=== PATIENT | female | born 1935 | race Caucasian/White ===

== ENCOUNTER 2018-05-11 10:42 | Observation (INO) ==
[2018-05-11] MEDS ORDERED: Ipratropium/Albuterol Neb 3 ML IH ONE (10:57)
--- NOTE | 2018-05-11 11:03 | Emergency Department Note ---
Disposition Clinical Impression: Chronic obstructive pulmonary disease with (acute) exacerbation, Hypokalemia Disposition: Admitted As Inpatient Condition: Good Referrals: David Ricardo MD [Primary Care Provider] - Forms: ED Satisfaction Letter General Adult HPI - General Chief complaint: ED Shortness of Breath/Dyspnea Stated complaint: dyspnea Time Seen by Provider: 05/11/18 10:49 Source: patient, family Limitations: no limitations Nursing Notes Reviewed: Yes Vital Signs Reviewed: Yes - History of Present Illness Pain Scale: 0 - Related Data Home Medications Medication Instructions Recorded Confirmed Aspirin [Adult Low Dose Aspirin EC] 81 mg PO QAM 04/07/15 04/07/15 Carvedilol 12.5 mg PO BID 04/07/15 04/07/15 Furosemide [Lasix] 40 mg PO QAM 04/07/15 04/07/15 Levothyroxine [Synthroid] 50 mcg PO QAM 04/07/15 04/07/15 Multivitamin/Iron/Folic Acid 1 each PO QAM 04/07/15 04/07/15 [Centrum Complete Multivit Tab] Nitroglycerin [Nitrostat] 0.4 mg SL AD PRN 04/07/15 04/07/15 Oxybutynin Chloride [Ditropan Xl] 5 mg PO QAM 04/07/15 04/07/15 Simvastatin [Zocor] 40 mg PO QPM 04/07/15 04/07/15 Previous Rx's Medication Instructions Recorded amLODIPine [Norvasc] 10 mg PO DAILY #30 tablet 04/10/15 Cane 1 each MC DAILY #1 each 10/25/16 predniSONE [PredniSONE] 40 mg PO DAILY #10 tablet 10/25/16 Benzonatate [Tessalon] 200 mg PO TID PRN #20 capsule 03/23/18 Doxycycline 100 mg PO BID #14 capsule 03/23/18 predniSONE [PredniSONE] 20 mg PO BID #10 tablet 03/23/18 Allergies Allergy/AdvReac Type Severity Reaction Status Date / Time ibuprofen [From Advil] Allergy See Verified 03/23/18 16:23 Comments Penicillins Allergy See Verified 03/23/18 16:23 Comments IVP dye Allergy Anaphylaxis Uncoded 12/14/16 14:15 Past Medical History - Past Medical History Medical history: Reports: COPD, hypertension, renal disease Surgical history: Reports: angioplasty/stent (Cardiac cath in 2012: EF 50-55%, minimal CAD, no stent placed.), cholecystectomy Psychiatric history: Reports: no psych history - Social History Smoking Status: Former smoker Smokeless Tobacco Status: No Alcohol use: Reports: none Drug use: Reports: none Physical Exam - General Limitations: no limitations General appearance: alert, in no apparent distress Course Vital Signs Temperature 97.8 F 05/11/18 10:44 Pulse Rate 76 05/11/18 10:44 Respiratory Rate 20 05/11/18 10:44 Blood Pressure 103/68 05/11/18 10:44 O2 Sat by Pulse Oximetry 95 05/11/18 10:44 Temperature 97.8 F 05/11/18 10:44 Pulse Rate 79 05/11/18 13:13 Respiratory Rate 16 05/11/18 13:13 Blood Pressure 107/57 05/11/18 13:13 O2 Sat by Pulse Oximetry 98 05/11/18 13:13 Oxygen Delivery Oxygen Delivery Room Air Medical Decision Making - MDM Narrative Medical decision making narrative: Chest X-Ray 05/11/18 10:53 IMPRESSION: 1. No acute abnormality. D/ / Tello Joyner MD / Tello Joyner MD Interpreting Provider: Tello Joyner MD 11:30: Patient is hypokalemic so we gave her some oral potassium waiting on urinalysis and then reassess. 1430 hrs.: Patient says that she like to come in with her hypokalemia her potential syncopal episode she had along with her COPD. I think that is reasonable. Were getting a replace her potassium start her on medications and bring her into the hospital. - Lab Data Result diagrams: 05/11/18 11:57 05/11/18 11:57 Lab Results 05/11/18 05/11/18 05/11/18 Range/Units 11:57 11:57 11:57 WBC 14.9 H (4.3-11.1) K/mcL RBC 3.49 L (3.82-4.97) M/mcL Hgb 11.0 L (11.5-15.4) g/dL Hct 33.2 L (35.3-44.9) % MCV 95.1 (83.0-100.0) fL MCH 31.5 (28.0-33.3) pg MCHC 33.1 (31.6-35.5) g/dL RDW 13.8 (11.5-14.5) % Plt Count 153 (140-400) K/mcL MPV 9.1 L (9.4-12.4) fL Immature Gran % 0.6 (0-4) % Seg Neutrophils % 77.1 % Lymphocytes % 12.0 % Monocytes % 10.1 % Eosinophils % 0.1 % Basophils % 0.1 % Neutrophils # 11.5 H (1.6-8.9) K/mcL Lymphocytes # 1.8 (0.6-4.6) K/mcL Monocytes # 1.5 H (0.0-1.3) K/mcL Eosinophils # 0.0 (0.0-0.6) K/mcL Basophils # 0.0 (0.0-0.2) K/mcL Sodium 137 (136-145) mEq/L Potassium 2.8 L (3.5-5.1) mEq/L Chloride 108 H (98-107) mEq/L Carbon Dioxide 24 (23-29) mEq/L BUN 33 H (8-23) mg/dL Creatinine 1.37 H (0.60-1.20) mg/dL Est GFR ( Amer) 45 L (> 60) Est GFR (Non-Af Amer) 37 L (> 60) BUN/Creatinine Ratio 24 (6-26) Glucose 91 (70-105) mg/dL Calculated Osmolality 291 (280-300) Calcium 7.7 L (8.6-10.3) mg/dL Troponin I < 0.03 (< 0.04) ng/mL Urine Color (Yellow) Urine Clarity (Clear) Urine pH (5.0-8.0) pH Units Ur Specific [place] (1.010-1.025) Urine Protein (Neg-Trace) mg/dL Urine Glucose (UA) (Normal) mg/dL Urine Ketones (Negative) mg/dL Urine Blood (Negative) Urine Nitrite (Negative) Urine Bilirubin (Negative) Urine Urobilinogen (Normal) mg/dL Ur Leukocyte Esterase (Negative) Urine Microscopic RBC (0-3) per hpf Urine Microscopic WBC (0-3) per hpf Ur Squamous Epith Cells (None-Few) per lpf Urine Bacteria (None-Few) per hpf Hyaline Casts (None-Few) per lpf Ur Culture Indicated? (NO) 05/11/18 Range/Units 13:03 WBC (4.3-11.1) K/mcL RBC (3.82-4.97) M/mcL Hgb (11.5-15.4) g/dL Hct (35.3-44.9) % MCV (83.0-100.0) fL MCH (28.0-33.3) pg MCHC (31.6-35.5) g/dL RDW (11.5-14.5) % Plt Count (140-400) K/mcL MPV (9.4-12.4) fL Immature Gran % (0-4) % Seg Neutrophils % % Lymphocytes % % Monocytes % % Eosinophils % % Basophils % % Neutrophils # (1.6-8.9) K/mcL Lymphocytes # (0.6-4.6) K/mcL Monocytes # (0.0-1.3) K/mcL Eosinophils # (0.0-0.6) K/mcL Basophils # (0.0-0.2) K/mcL Sodium (136-145) mEq/L Potassium (3.5-5.1) mEq/L Chloride (98-107) mEq/L Carbon Dioxide (23-29) mEq/L BUN (8-23) mg/dL Creatinine (0.60-1.20) mg/dL Est GFR ( Amer) (> 60) Est GFR (Non-Af Amer) (> 60) BUN/Creatinine Ratio (6-26) Glucose (70-105) mg/dL Calculated Osmolality (280-300) Calcium (8.6-10.3) mg/dL Troponin I (< 0.04) ng/mL Urine Color Yellow (Yellow) Urine Clarity Clear (Clear) Urine pH 6.0 (5.0-8.0) pH Units Ur Specific [place] 1.012 (1.010-1.025) Urine Protein Negative (Neg-Trace) mg/dL Urine Glucose (UA) Normal (Normal) mg/dL Urine Ketones Negative (Negative) mg/dL Urine Blood Negative (Negative) Urine Nitrite Negative (Negative) Urine Bilirubin Negative (Negative) Urine Urobilinogen Normal (Normal) mg/dL Ur Leukocyte Esterase Trace H (Negative) Urine Microscopic RBC 3-5 H (0-3) per hpf Urine Microscopic WBC 0-3 (0-3) per hpf Ur Squamous Epith Cells Many H (None-Few) per lpf Urine Bacteria None Seen (None-Few) per hpf Hyaline Casts None Seen (None-Few) per lpf Ur Culture Indicated? NO. A (NO) Attestation Statement - Attestation Attestation: This documentation is done with the assistance of Dragon dictation. Despite efforts made to ensure accuracy, there may be inaccuracies in dross skimmer or spelling and typographical errors. I examined this patient and my medical decision-making was reviewed with the Resident Physician. I agree with the documented findings, disposition and treatment plan as described except to the extent set forth below. Patient was seen today by myself, and Dr. Jean, I agree with her evaluation and management plan, I supervised the care the patient's stay. Patient presents today family says she will sleep with her oxygen on at night despite having CHF and COPD. They found her altered this morning, not on her oxygen; they placed her on her oxygen and she improved and now she says she does not really have any complaints except she has been coughing up some green sputum. Denies any fevers; no chest pain; no leg pain. She is laughing and joking with us here. She has been urinating more often; we will check labs on her, give her breathing treatment, chest x-ray,EKG and reassess. She is in agreement with this plan.
--- NOTE | 2018-05-11 11:08 | Emergency Department Note ---
Disposition Clinical Impression: Chronic obstructive pulmonary disease with (acute) exacerbation, Hypokalemia Disposition: Admitted As Inpatient Condition: Good Referrals: David Ricardo MD [Primary Care Provider] - SOB HPI - General Chief Complaint: ED Shortness of Breath/Dyspnea Stated Complaint: dyspnea Time Seen by Provider: 05/11/18 10:49 Source: patient, family Limitations: no limitations Nursing Notes Reviewed: Yes Vital Signs Reviewed: Yes - History of Present Illness 82-year-old female with history of COPD, CHF who presents the emergency department with complaints of shortness of breath. The patient's family found her slightly unresponsive and significantly short of breath. She was placed on oxygen with rapid improvement in her mentation. The patient is supposed to be on oxygen reportedly only at night but does do seem to be more functional throughout the day if she wears oxygen. She has not been using her oxygen as she believes the machine is too loud. Patient does note increase in her shortness of breath and a productive cough of green sputum, especially at night. She also notes intermittent dysuria. She denies any fever but does feel warm. She otherwise denies any chills, chest pain, nausea, vomiting, diarrhea, abdominal pain, headache. - Related Data Home Medications Medication Instructions Recorded Confirmed Aspirin [Adult Low Dose Aspirin EC] 81 mg PO QAM 04/07/15 04/07/15 Carvedilol 12.5 mg PO BID 04/07/15 04/07/15 Furosemide [Lasix] 40 mg PO QAM 04/07/15 04/07/15 Levothyroxine [Synthroid] 50 mcg PO QAM 04/07/15 04/07/15 Multivitamin/Iron/Folic Acid 1 each PO QAM 04/07/15 04/07/15 [Centrum Complete Multivit Tab] Nitroglycerin [Nitrostat] 0.4 mg SL AD PRN 04/07/15 04/07/15 Oxybutynin Chloride [Ditropan Xl] 5 mg PO QAM 04/07/15 04/07/15 Simvastatin [Zocor] 40 mg PO QPM 04/07/15 04/07/15 Previous Rx's Medication Instructions Recorded amLODIPine [Norvasc] 10 mg PO DAILY #30 tablet 04/10/15 Cane 1 each MC DAILY #1 each 10/25/16 predniSONE [PredniSONE] 40 mg PO DAILY #10 tablet 10/25/16 Benzonatate [Tessalon] 200 mg PO TID PRN #20 capsule 03/23/18 Doxycycline 100 mg PO BID #14 capsule 03/23/18 predniSONE [PredniSONE] 20 mg PO BID #10 tablet 03/23/18 Allergies Allergy/AdvReac Type Severity Reaction Status Date / Time ibuprofen [From Advil] Allergy See Verified 03/23/18 16:23 Comments Penicillins Allergy See Verified 03/23/18 16:23 Comments IVP dye Allergy Anaphylaxis Uncoded 12/14/16 14:15 Review of Systems: In addition to that documented in the HPI above, the additional ROS was obtaine d: General: Denies fever. Denies chills. Denies weight loss. Denies behavioral change. Eyes: Denies visual changes. ENT: Denies nasal congestion. Denies sore throat. Denies hearing change. Cardio: Denies chest pain. Denies palpitations. Respiratory: Admits cough. Admits shortness of breath. Admits wheezing. GI: Denies nausea, vomiting, or diarrhea. Denies hematochezia or melena. Denies abdominal pain. : Denies dysuria, hematuria, or urinary retention MSK: Denies back pain. Denies joint swelling. Neuro: Denies slurred speech. Denies numbness or tingling. Denies focal w eakness. Denies headache. Denies loss of consciousness. Psych: Denies mood changes. All systems ED: reviewed and negative except as stated. Review of Systems: As Per HPI Past Medical History - Past Medical History Medical history: Reports: COPD, hypertension, renal disease Surgical history: Reports: angioplasty/stent (Cardiac cath in 2012: EF 50-55%, minimal CAD, no stent placed.), cholecystectomy Psychiatric history: Reports: no psych history - Social History Smoking Status: Former smoker Smokeless Tobacco Status: No Alcohol use: Reports: none Drug use: Reports: none Physical Exam General: Conversant. No apparent distress. Follow commands. Appears stated age. Neck: No JVD. Trachea midline. Neck supple. Eyes: PERRL. No scleral icterus. HENT: Normocephalic and atraumatic. Moist mucus membranes. Cardiovascular: Regular rate and rhythm. Normal S1 and S2. No murmurs appreciated. Normal capillary refill. Extremities well perfused with 2+ distal pulses bilaterally. No peripheral edema. Pulmonary: Diffuse coarseness throughout. No wheezes. Not in respiratory distress. Speaks in full sentences. Abdomen: Soft, nondistended, and tontender. No bruits or masses. No guarding. Neuro: Alert and oriented x3. No slurred speech. No focal deficits noted. Skin: No rashes noted on visualized skin. Musculoskeletal: No bony abnormalities visualized. Moves all extremities. Psych: Normal mood. Pleasant. Makes appropriate eye contact. - General Limitations: no limitations General appearance: alert, in no apparent distress Course Vital Signs Temperature 97.8 F 05/11/18 10:44 Pulse Rate 76 05/11/18 10:44 Respiratory Rate 20 05/11/18 10:44 Blood Pressure 103/68 05/11/18 10:44 O2 Sat by Pulse Oximetry 95 05/11/18 10:44 Temperature 97.8 F 05/11/18 10:44 Pulse Rate 79 05/11/18 14:55 Respiratory Rate 18 05/11/18 14:55 Blood Pressure 94/44 05/11/18 14:55 O2 Sat by Pulse Oximetry 97 05/11/18 14:55 Oxygen Delivery Oxygen Delivery Room Air Shortness of Breath/Dyspnea - MDM Narrative Medical decision making narrative: 82-year-old female who presents emergency Department with complaints of shortnes s of breath. Patient does have COPD and CHF. Family found her to be hypoxic. On arrival the patient is slightly tachypneic with significant wheezes throughout. The patient was evaluated with CBC, BMP, chest x-ray, EKG, troponin, urinalysis. Chest x-ray shows no evidence of acute focal consolida tion. EKG is unchanged from previous. She does have significant wheezing and had significant improvement with 2 nebs but continues to be slightly short of breath. BMP does show hypokalemia which we have replaced with oral potassium. Do believe this is likely a COPD exacerbation therefore will treat with methylprednisolone, azithromycin. The patient is agreeable for admission given her continued wheezing and coarse breath sounds. Discussed case with on-call hospitalist Dr. Ellsworth who agrees with plan for admission and accepts the patient to the inpatient service. Patient agrees with and understands course of treatment plan including plan for admission. All questions answered. - Medical Records Medical records reviewed: Yes I reviewed the patient's medical records. - Lab Data Lab results reviewed: Yes I reviewed the patient's lab results. Result diagrams: 05/11/18 11:57 05/11/18 11:57 Lab Results 05/11/18 05/11/18 05/11/18 Range/Units 11:57 11:57 11:57 WBC 14.9 H (4.3-11.1) K/mcL RBC 3.49 L (3.82-4.97) M/mcL Hgb 11.0 L (11.5-15.4) g/dL Hct 33.2 L (35.3-44.9) % MCV 95.1 (83.0-100.0) fL MCH 31.5 (28.0-33.3) pg MCHC 33.1 (31.6-35.5) g/dL RDW 13.8 (11.5-14.5) % Plt Count 153 (140-400) K/mcL MPV 9.1 L (9.4-12.4) fL Immature Gran % 0.6 (0-4) % Seg Neutrophils % 77.1 % Lymphocytes % 12.0 % Monocytes % 10.1 % Eosinophils % 0.1 % Basophils % 0.1 % Neutrophils # 11.5 H (1.6-8.9) K/mcL Lymphocytes # 1.8 (0.6-4.6) K/mcL Monocytes # 1.5 H (0.0-1.3) K/mcL Eosinophils # 0.0 (0.0-0.6) K/mcL Basophils # 0.0 (0.0-0.2) K/mcL Sodium 137 (136-145) mEq/L Potassium 2.8 L (3.5-5.1) mEq/L Chloride 108 H (98-107) mEq/L Carbon Dioxide 24 (23-29) mEq/L BUN 33 H (8-23) mg/dL Creatinine 1.37 H (0.60-1.20) mg/dL Est GFR ( Amer) 45 L (> 60) Est GFR (Non-Af Amer) 37 L (> 60) BUN/Creatinine Ratio 24 (6-26) Glucose 91 (70-105) mg/dL Calculated Osmolality 291 (280-300) Calcium 7.7 L (8.6-10.3) mg/dL Troponin I < 0.03 (< 0.04) ng/mL Urine Color (Yellow) Urine Clarity (Clear) Urine pH (5.0-8.0) pH Units Ur Specific [place] (1.010-1.025) Urine Protein (Neg-Trace) mg/dL Urine Glucose (UA) (Normal) mg/dL Urine Ketones (Negative) mg/dL Urine Blood (Negative) Urine Nitrite (Negative) Urine Bilirubin (Negative) Urine Urobilinogen (Normal) mg/dL Ur Leukocyte Esterase (Negative) Urine Microscopic RBC (0-3) per hpf Urine Microscopic WBC (0-3) per hpf Ur Squamous Epith Cells (None-Few) per lpf Urine Bacteria (None-Few) per hpf Hyaline Casts (None-Few) per lpf Ur Culture Indicated? (NO) 05/11/18 Range/Units 13:03 WBC (4.3-11.1) K/mcL RBC (3.82-4.97) M/mcL Hgb (11.5-15.4) g/dL Hct (35.3-44.9) % MCV (83.0-100.0) fL MCH (28.0-33.3) pg MCHC (31.6-35.5) g/dL RDW (11.5-14.5) % Plt Count (140-400) K/mcL MPV (9.4-12.4) fL Immature Gran % (0-4) % Seg Neutrophils % % Lymphocytes % % Monocytes % % Eosinophils % % Basophils % % Neutrophils # (1.6-8.9) K/mcL Lymphocytes # (0.6-4.6) K/mcL Monocytes # (0.0-1.3) K/mcL Eosinophils # (0.0-0.6) K/mcL Basophils # (0.0-0.2) K/mcL Sodium (136-145) mEq/L Potassium (3.5-5.1) mEq/L Chloride (98-107) mEq/L Carbon Dioxide (23-29) mEq/L BUN (8-23) mg/dL Creatinine (0.60-1.20) mg/dL Est GFR ( Amer) (> 60) Est GFR (Non-Af Amer) (> 60) BUN/Creatinine Ratio (6-26) Glucose (70-105) mg/dL Calculated Osmolality (280-300) Calcium (8.6-10.3) mg/dL Troponin I (< 0.04) ng/mL Urine Color Yellow (Yellow) Urine Clarity Clear (Clear) Urine pH 6.0 (5.0-8.0) pH Units Ur Specific [place] 1.012 (1.010-1.025) Urine Protein Negative (Neg-Trace) mg/dL Urine Glucose (UA) Normal (Normal) mg/dL Urine Ketones Negative (Negative) mg/dL Urine Blood Negative (Negative) Urine Nitrite Negative (Negative) Urine Bilirubin Negative (Negative) Urine Urobilinogen Normal (Normal) mg/dL Ur Leukocyte Esterase Trace H (Negative) Urine Microscopic RBC 3-5 H (0-3) per hpf Urine Microscopic WBC 0-3 (0-3) per hpf Ur Squamous Epith Cells Many H (None-Few) per lpf Urine Bacteria None Seen (None-Few) per hpf Hyaline Casts None Seen (None-Few) per lpf Ur Culture Indicated? NO. A (NO) - Radiology Data Radiology results reviewed: Yes I reviewed the patient's radiology results. Chest X-Ray 05/11/18 10:53 IMPRESSION: 1. No acute abnormality. D/ / Tello Joyner MD / Tello Joyner MD Interpreting Provider: Tello Joyner MD - EKG Data EKG attestation: Yes I reviewed and interpreted this EKG. EKG results narrative: Normal sinus rhythm rate of 71. PA 147, QRS 139, QTC 428, QTC 466. Slight left axis with a left bundle branch block but no evidence of ST elevations. He when compared with prior from 04/08/15 there are no significant changes.
[2018-05-11] MEDS ORDERED: 0.9 % Sodium Chloride 500 ML IVC ONE (11:32)
[2018-05-11 12:08] LABS: Basophils % 0.1 %; Eosinophils % 0.1 %; Hematocrit 33.2 % (35.3-44.9); Immature Granulocytes % 0.6 % (0-4); Lymphocytes # 1.8 K/mcL (0.6-4.6); Mean Corpuscular HGB Conc 33.1 g/dL (31.6-35.5); Mean Corpuscular Hemoglobin 31.5 pg (28.0-33.3); Mean Corpuscular Volume 95.1 fL (83.0-100.0); Mean Platelet Volume 9.1 fL (9.4-12.4); Monocytes # 1.5 K/mcL (0.0-1.3); Monocytes % 10.1 %; Neutrophils # 11.5 K/mcL (1.6-8.9); Platelet Count 153 K/mcL (140-400); Red Blood Count 3.49 M/mcL (3.82-4.97); Red Cell Distribution Width 13.8 % (11.5-14.5); Segmented Neutrophils % 77.1 %
[2018-05-11 12:28] LABS: Calcium 7.7 mg/dL (8.6-10.3); Potassium 2.8 mEq/L (3.5-5.1)
[2018-05-11] MEDS ORDERED: Potassium Effervescent 25 MEQ TABLET.EFF PO ONE (12:40)
[2018-05-11 13:45] LABS: Bilirubin,Urine Negative (Negative); Blood,Urine Negative (Negative); Clarity,Urine Clear (Clear); Color,Urine Yellow (Yellow); Glucose,Urine (UA) Normal (Normal); Ketones,Urine Negative (Negative); Leukocyte Esterase,Urine Trace (Negative); Nitrite,Urine Negative (Negative); Protein,Urine Negative (Neg-Trace); Specific Gravity,Urine 1.012 (1.010-1.025); Urobilinogen,Urine Normal (Normal)
[2018-05-11 13:49] LABS: Bacteria,Urine None Seen per hpf (None-Few); Hyaline Casts,Urine None Seen per lpf (None-Few); Squamous Epithelial Cell,Urine Many per lpf (None-Few); WBC,Urine 0-3 per hpf (0-3)
[2018-05-11] MEDS ORDERED: methylPREDNISolone 125 MG/2 ML VIAL IVP ONE (14:22)
[2018-05-11] MEDS ORDERED: Azithromycin 500 MG in D5% in Water 250 ML IVPB ONE (14:23)
[2018-05-11] MEDS ORDERED: cefTRIAXone 1,000 MG in Water for inj. (sterile) 20 ML 10 ML IVP ONE (14:25)
[2018-05-11] MEDS ORDERED: Naloxone 0.4 MG/ML INJ IVP PRN (14:36)
[2018-05-11] MEDS ORDERED: Ondansetron 4 MG/2 ML VIAL IVP PRN (14:36)
--- NOTE | 2018-05-11 14:52 | Internal Med History&Physical ---
Date of Encounter: 05/11/18 Time of Encounter: 14:30 Internal Medicine - H&P: HPI Chief complaint: SOB Admitted From: Home History of present illness: Ms. Read is a 82 year old female with history of COPD, CHF, CKD, who presented to the ED with 2 day history of shortness of breath. Associated with runny nose and sore throat. She has also been coughing with yellowish sputum during that period. Denies any chest pain, palpitation, orthopnea, PND, or leg swelling. She also did not use her nocturnal oxygen that she was supposed to use as the machine was "too loud". She is also noncompliant to her inhalers that she supposed take at home. Denies any sick contacts. No nausea/vomiting, abdominal pain, change in bowel habits, or dysuria. In the ED, she was afebrile and hemodynamically stable. Saturating well on room air currently, was briefly requiring O2 per report. Labwork showed mild leukocytosis of 14.9 and potassium of 2.8. Creatinine 1.37 which is at her baseline. Troponin was negative and EKG shows normal sinus rhythm with known LBBB. Urinalysis was negative for leukocyte esterase or nitrite. Chest x-ray did not show any acute cardiopulmonary process. Patient was given IV Solu-Medrol, bronchodilators, Rocephin/azithromycin, and admitted for further management. Past Med Surg Social Fam HX - Past Medical History Attestation: Yes The following information was validated with the patient. Medical history: CHF, COPD, hypertension, renal disease Additional medical history: anemia, chronic venous insufficiency Psychiatric history: no psych history - Past Surgical History Surgical History: angioplasty/stent (Cardiac cath in 2011: EF 50-55%, minimal CAD, no stent placed.), cholecystectomy - Social History Smoking Status: Former smoker Smokeless Tobacco Status: No Alcohol use: none Drug use: none - Family History Mother Living Status: Hx Family Cardiac Disorders: Yes (MYOCARDIAL INFARCTION at age 70s) Internal Medicine - H&P: Meds Aspirin [Adult Low Dose Aspirin EC] 81 mg PO QAM 04/07/15 [History] Carvedilol 12.5 mg PO BID 04/07/15 [History] Furosemide [Lasix] 40 mg PO QAM 04/07/15 [History] Levothyroxine [Synthroid] 50 mcg PO QAM 04/07/15 [History] Multivitamin/Iron/Folic Acid [Centrum Complete Multivit Tab] 1 each PO QAM 04/07/15 [History] Nitroglycerin [Nitrostat] 0.4 mg SL AD PRN 04/07/15 [History] Oxybutynin Chloride [Ditropan Xl] 5 mg PO QAM 04/07/15 [History] Simvastatin [Zocor] 40 mg PO QPM 04/07/15 [History] amLODIPine [Norvasc] 10 mg PO DAILY #30 tablet 04/10/15 [Rx] Cane 1 each MC DAILY #1 each 10/25/16 [Rx] predniSONE [PredniSONE] 40 mg PO DAILY #10 tablet 10/25/16 [Rx] Benzonatate [Tessalon] 200 mg PO TID PRN #20 capsule 03/23/18 [Rx] Doxycycline 100 mg PO BID #14 capsule 03/23/18 [Rx] predniSONE [PredniSONE] 20 mg PO BID #10 tablet 03/23/18 [Rx] Allergy/AdvReac Type Severity Reaction Status Date / Time ibuprofen [From Advil] Allergy See Verified 03/23/18 16:23 Comments Penicillins Allergy See Verified 03/23/18 16:23 Comments IVP dye Allergy Anaphylaxis Uncoded 12/14/16 14:15 All Systems PM: A 10-system review of systems was performed and is negative for pertinent findings except as documented above in the HPI. - Constitutional Vitals: Temp Pulse Resp BP Pulse Ox 97.8 F 79 16 107/57 98 05/11/18 10:44 05/11/18 13:13 05/11/18 13:13 05/11/18 13:13 05/11/18 13:13 Exam: General: Alert and oriented, not in acute distress. Frail elderly female. HEENT:EOMI, pupils equal, round and reactive. Cardiovascular:Normal S1 & S2, No JVD. Pulse regular. Lungs: Scattered wheezes bilaterally. Abdomen:Soft, non-tender, no rigidity. Extremities:No deformity or swelling Neurological:Normal cognition and motor skills. Non-focal Skin:Normal color, no rash, no lesions. Pulses:Carotid and radial pulses normal +2. Rest of the physical exam is non contributory Internal Med - H&P Results - Labs CBC & Chem 7: 05/11/18 11:57 05/11/18 11:57 Labs: Short CBC 05/11/18 Range/Units 11:57 WBC 14.9 H (4.3-11.1) K/mcL Hgb 11.0 L (11.5-15.4) g/dL Hct 33.2 L (35.3-44.9) % Plt Count 153 (140-400) K/mcL Neutrophils # 11.5 H (1.6-8.9) K/mcL BMP 05/11/18 11:57 Sodium 137 Potassium 2.8 L Chloride 108 H Carbon Dioxide 24 BUN 33 H Creatinine 1.37 H Glucose 91 Calcium 7.7 L Cardiac Enzymes 05/11/18 Range/Units 11:57 Troponin I < 0.03 (< 0.04) ng/mL Urine 05/11/18 Range/Units 13:03 Urine Color Yellow (Yellow) Urine Clarity Clear (Clear) Urine pH 6.0 (5.0-8.0) pH Units Ur Specific [place] 1.012 (1.010-1.025) Urine Protein Negative (Neg-Trace) mg/dL Urine Glucose (UA) Normal (Normal) mg/dL - Impressions ITS Impressions Chest X-Ray 05/11/18 10:53 IMPRESSION: 1. No acute abnormality. D/ / Tello Joyner MD / Tello Joyner MD Interpreting Provider: Tello Joyner MD - Assessment and Plan (1) Chronic obstructive pulmonary disease with (acute) exacerbation Current Visit: Yes Status: Acute Assessment and plan: Presented with shortness of breath, worsening cough with sputum production. ALso endorses URI symptoms but no sick contacts Chest x-ray negative for any obvious infiltrates feels better after bronchodilator and IV solumedrol. Continue Given Elliot/azithromycin in the ED, will continue macrolide for 5 days check respiratory viral panel does not have a nebulizer at home, would benefit from one at the time of discharge Reinforced the importance of compliance to her inhalers. (2) Hypokalemia Current Visit: Yes Status: Acute Assessment and plan: K 2.9, No EKG changes Repleted 50 mEq in the ED Monitor K (3) CHF (congestive heart failure) Current Visit: Yes Status: Chronic Assessment and plan: Patient had echocardiogram done in March 2015 which showed EF of 50% and mild diastolic LV dysfunction. currently not in exacerbation Resume home meds once reconciled Qualifiers: Heart failure type: diastolic Heart failure chronicity: chronic Qualified Code(s): I50.32 - Chronic diastolic (congestive) heart failure (4) CKD (chronic kidney disease) stage 3, GFR 30-59 ml/min Current Visit: No Status: Chronic Assessment and plan: Creatinine at her baseline, avoid nephrotoxins (5) DVT prophylaxis Current Visit: No Status: Acute Assessment and plan: Subcutaneous heparin - Time Spent With Patient Total time spent is greater than 50% in coordination of care (as documented) at patient's floor/unit and/or counseling patient: 25 - 35 minutes
[2018-05-11] MEDS: *HR* Heparin 5,000 UNIT/ML VIAL SQ SCH (17:20)
[2018-05-12] MEDS ORDERED: Ipratropium/Albuterol Neb 3 ML IH PRN (01:54)
[2018-05-12 03:20] LABS: Adenovirus Not Detected (Not Detect); Bordetella Pertussis Not Detected (Not Detect); Chlamydophila pneumoniae Not Detected (Not Detect); Coronavirus 229E Not Detected (Not Detect); Coronavirus HKU1 Not Detected (Not Detect); Coronavirus NL63 Not Detected (Not Detect); Coronavirus OC43 DETECTED (Not Detect); Human Metapneumovirus Not Detected (Not Detect); Human Rhinovirus/Enterovirus Not Detected (Not Detect); Influenza A Subtype 2009 H1 Not Detected (Not Detect); Influenza A Untypeable Not Detected (Not Detect); Influenza B Not Detected (Not Detect); Mycoplasma pneumoniae Not Detected (Not Detect); Parainfluenza Virus 1 Not Detected (Not Detect); Parainfluenza Virus 2 Not Detected (Not Detect); Parainfluenza Virus 3 Not Detected (Not Detect); Parainfluenza Virus 4 Not Detected (Not Detect); Respiratory Syncytial Virus Not Detected (Not Detect)
[2018-05-12] MEDS: *HR* Heparin 5,000 UNIT/ML VIAL SQ SCH (05:41)
[2018-05-12] MEDS ORDERED: MethylPREDNISolone 40 MG/ML VIAL IVP SCH (08:00)
[2018-05-12] MEDS ORDERED: Azithromycin 250 MG TABLET PO SCH (09:00)
[2018-05-12] MEDS ORDERED: Aspirin Enteric Coated 81 MG Tablet PO SCH (09:00)
[2018-05-12 09:52] LABS: ABG Base Excess -1 mEq/L (-2 to 3); ABG HCO3 22 mEq/L (21-27); ABG Oxygen Saturation 89 % (95-98); ABG PCO2 31 mmHg (35-45); ABG PH 7.47 pH Units (7.32-7.45); ABG PO2 51 mmHg (85-104); ABG TCO2 23 mEq/L (20-26)
[2018-05-12 10:01] LABS: Basophils % 0.2 %; Hematocrit 38.5 % (35.3-44.9); Immature Granulocytes % 0.9 % (0-4); Lymphocytes # 1.1 K/mcL (0.6-4.6); Lymphocytes % 7.6 %; Mean Corpuscular HGB Conc 32.7 g/dL (31.6-35.5); Mean Corpuscular Hemoglobin 31.3 pg (28.0-33.3); Mean Corpuscular Volume 95.5 fL (83.0-100.0); Mean Platelet Volume 9.4 fL (9.4-12.4); Monocytes # 0.2 K/mcL (0.0-1.3); Monocytes % 1.5 %; Neutrophils # 13.1 K/mcL (1.6-8.9); Platelet Count 182 K/mcL (140-400); Red Blood Count 4.03 M/mcL (3.82-4.97); Red Cell Distribution Width 13.4 % (11.5-14.5); Segmented Neutrophils % 89.8 %
[2018-05-12 10:04] LABS: Hemoglobin 12.6 g/dL (11.5-15.4)
[2018-05-12 10:35] LABS: Magnesium 1.4 mg/dL (1.6-2.6); Potassium 4.3 mEq/L (3.5-5.1)
[2018-05-12 12:10] VITALS: BP 128/73
--- NOTE | 2018-05-12 12:59 | Discharge Summary ---
- NOTES TO OUTPATIENT PROVIDER Notes to Outpatient Provider: PCP for repeat BMp in 2- 5adys Orders not resulted at time of discharge: Pending orders 05/11/18 10:53 EKG [ECG 12 lead ECG] [ECG] Stat Date of Encounter: 05/12/18 Time of Encounter: 12:56 - Discharge Diagnosis (1) Chronic obstructive pulmonary disease with (acute) exacerbation Priority: Primary Status: Acute Hospital course: Ms. Read is a 82 year old female with history of COPD, CHF, CKD, who presented to the ED with 2 day history of shortness of breath. Associated with runny nose and sore throat. She has also been coughing with yellowish sputum during that period. Denies any chest pain, palpitation, orthopnea, PND, or leg swelling. She also did not use her nocturnal oxygen that she was supposed to use as the machine was "too loud". She is also noncompliant to her inhalers that she supposed take at home. Denies any sick contacts. No nausea/vomiting, abdominal pain, change in bowel habits, or dysuria. In the ED, she was afebrile and hemodynamically stable. Saturating well on room air currently, was briefly requiring O2 per report. Labwork showed mild leukocytosis of 14.9 and potassium of 2.8. Creatinine 1.37 which is at her baseline. Troponin was negative and EKG shows normal sinus rhythm with known LBBB. Urinalysis was negative for leukocyte esterase or nitrite. Pt ws kept in the hospital and pt was found to have COPDE likley from noncompliance. The daughter is worreid becasue pt has been refusing and [facility]. Regardless, pt lungs sound clear, if able to ambulate, pt then will be discharged. Pt is going home with inhaled steroid and QID albuterol. - Time Spent with Patient Total time spent providing and/or coordinating discharge services: - Discharge Medications Prescriptions: New Albuterol Sulfate [Proair Hfa] 1 puff IH QID #1 inh Fluticasone/Salmeterol [Advair 500-50 Diskus] 1 each IH DAILY #1 blst.w.dev predniSONE [PredniSONE] 10 mg PO DAILY #90 tablet Discontinued predniSONE [PredniSONE] 40 mg PO DAILY #10 tablet predniSONE [PredniSONE] 20 mg PO BID #10 tablet No Action Furosemide [Lasix] 40 mg PO QAM Carvedilol 12.5 mg PO BID Simvastatin [Zocor] 40 mg PO QPM Oxybutynin Chloride [Ditropan Xl] 5 mg PO QAM Nitroglycerin [Nitrostat] 0.4 mg SL AD PRN PRN Reason: Chest Pain Multivitamin/Iron/Folic Acid [Centrum Complete Multivit Tab] 1 each PO QAM Levothyroxine [Synthroid] 50 mcg PO QAM Aspirin [Adult Low Dose Aspirin EC] 81 mg PO QAM amLODIPine [Norvasc] 10 mg PO DAILY #30 tablet Cane 1 each MC DAILY #1 each Benzonatate [Tessalon] 200 mg PO TID PRN #20 capsule PRN Reason: Cough Doxycycline 100 mg PO BID #14 capsule Home Medications: Aspirin [Adult Low Dose Aspirin EC] 81 mg PO QAM 04/07/15 [History] Carvedilol 12.5 mg PO BID 04/07/15 [History] Furosemide [Lasix] 40 mg PO QAM 04/07/15 [History] Levothyroxine [Synthroid] 50 mcg PO QAM 04/07/15 [History] Multivitamin/Iron/Folic Acid [Centrum Complete Multivit Tab] 1 each PO QAM 04/07/15 [History] Nitroglycerin [Nitrostat] 0.4 mg SL AD PRN 04/07/15 [History] Oxybutynin Chloride [Ditropan Xl] 5 mg PO QAM 04/07/15 [History] Simvastatin [Zocor] 40 mg PO QPM 04/07/15 [History] amLODIPine [Norvasc] 10 mg PO DAILY #30 tablet 04/10/15 [Rx] Cane 1 each MC DAILY #1 each 10/25/16 [Rx] Benzonatate [Tessalon] 200 mg PO TID PRN #20 capsule 03/23/18 [Rx] Doxycycline 100 mg PO BID #14 capsule 03/23/18 [Rx] Albuterol Sulfate [Proair Hfa] 1 puff IH QID #1 inh 05/12/18 [Rx] Fluticasone/Salmeterol [Advair 500-50 Diskus] 1 each IH DAILY #1 blst.w.dev 05/12/18 [Rx] predniSONE [PredniSONE] 10 mg PO DAILY #90 tablet 05/12/18 [Rx] Allergies/Adverse Reactions: Allergy/AdvReac Type Severity Reaction Status Date / Time ibuprofen [From Advil] Allergy See Verified 03/23/18 16:23 Comments Penicillins Allergy See Verified 03/23/18 16:23 Comments IVP dye Allergy Anaphylaxis Uncoded 12/14/16 14:15 Date of admission: 05/11/18 14:47 Primary care physician: David Ricardo MD - Constitutional Vitals: Temp Pulse Resp BP Pulse Ox 98.4 F 70 16 128/73 93 05/12/18 12:07 05/12/18 12:07 05/12/18 12:07 05/12/18 12:07 05/12/18 12:07 Exam: General: Alert and oriented, not in acute distress. Frail elderly female. HEENT:EOMI, pupils equal, round and reactive. Cardiovascular:Normal S1 & S2, No JVD. Pulse regular. Lungs: Scattered wheezes bilaterally. Abdomen:Soft, non-tender, no rigidity. Extremities:No deformity or swelling Neurological:Normal cognition and motor skills. Non-focal Skin:Normal color, no rash, no lesions. Pulses:Carotid and radial pulses normal +2. Rest of the physical exam is non contributory - Patient Status Disposition: Home, Self-Care Condition: Good - Discharge Instructions Follow Up With: David Ricardo MD [Primary Care Provider] - (Hospital follow up appointment has been requested. Office will call with date and time of appointment. )
--- NOTE | 2018-05-15 12:37 | Electrocardiograph Report ---
[address] [place] [address] Test Date: 2018-05-11 Pat Name: Desi Read Department: EXAM7 Room: 3B12 Gender: F Licensed Veterinary Technician: : 1935 Requested By: Gary Gomez Order Number: [id number] Reading MD: Jess Marcus Measurements Intervals [place] Rate: 71 P: 73 WV: 147 QRS: -73 QRSD: 139 T: 86 QT: 428 QTc: 466 Interpretive Statements Sinus rhythm Left bundle branch block Electronically Signed On 05-15-2018 12:36:15 EST by Jess Marcus
== END 2018-05-12 14:46 | disposition home or self-care (01) ==
LOC: 3BNU 10:42 → EMEROOARM 10:42 → SUATTDRO 14:47 → 3BNU 15:27
PROVIDERS: ADMIT Internal Medicine; ATTEND Internal Medicine

== ENCOUNTER 2018-08-20 17:57 | Inpatient (IN) ==
[2018-08-20] MEDS ORDERED: 0.9 % Sodium Chloride 1,000 ML IVC ONE ×2 (18:08→19:30)
[2018-08-20] MEDS ORDERED: Ipratropium/Albuterol Neb 3 ML IH ONE (18:09)
[2018-08-20] MEDS ORDERED: predniSONE 20 MG TABLET PO ONE (18:10)
--- NOTE | 2018-08-20 18:27 | Emergency Department Note ---
Disposition Clinical Impression: COPD exacerbation, Acute renal insufficiency Pneumonia Qualifiers: Pneumonia type: due to unspecified organism Laterality: left Lung location: unspecified part of lung Qualified Code(s): J18.9 - Pneumonia, unspecified organism Disposition: Admitted As Inpatient Condition: Good Time of Disposition: 21:32 General Adult HPI - General Chief complaint: ED Shortness of Breath/Dyspnea Stated complaint: GENOVEVA Time Seen by Provider: 08/20/18 18:02 Source: EMS Limitations: no limitations Nursing Notes Reviewed: Yes Vital Signs Reviewed: Yes - History of Present Illness HPI Narrative: 82-year-old female presented to emergency department with concern for shortness of breath that has been ongoing for last 4 months. Reports hospitalization within the last month for MRSA pneumonia. Patient was seen at her primary care office today who sent her in the emergency Department due to concern for increasing shortness of breath, with possible lower blood pressures. Patient states that she never got better. Family is concerned that she may have a bacteremia. Reports a several years ago, she developed a bacteremia after pneumonia. Patient denies any chest pain, pressure, tightness. Pain Scale: 0 - Related Data Home Medications Medication Instructions Recorded Confirmed Multivitamin/Iron/Folic Acid 1 tab PO DAILY 04/07/15 08/20/18 [Centrum Complete Multivit Tab] Nitroglycerin [Nitrostat] 0.4 mg SL AD PRN 04/07/15 08/20/18 Aspirin [Adult Aspirin Regimen] 81 mg PO DAILY 07/03/18 08/20/18 Atorvastatin Calcium [Lipitor] 20 mg PO DAILY 07/03/18 08/20/18 Carvedilol [Coreg] 25 mg PO BID 07/03/18 08/20/18 Cholecalciferol (Vitamin D3) 1,000 unit PO DAILY 07/03/18 07/03/18 [Vitamin D3] Fluticasone/Salmeterol [Advair 1 puff IH DAILY 07/03/18 08/20/18 500-50 Diskus] Loratadine [Allergy Relief] 10 mg PO DAILY 07/03/18 08/20/18 [place]-3/Dha/Epa/Fish Oil [Fish Oil 1 cap PO DAILY 07/03/18 07/03/18 1,000 mg Softgel] Tiotropium [place] [Spiriva 2 puff IH DAILY 07/03/18 08/20/18 Respimat] Tramadol HCl [Ultram] 50 mg PO Q6H 07/03/18 07/03/18 hydrALAZINE [HydrALAZINE] 50 mg PO BID 07/03/18 08/20/18 Furosemide [Lasix] 60 mg PO DAILY 08/20/18 08/20/18 Levothyroxine Sodium [Levoxyl] 75 mcg PO DAILY 08/20/18 08/20/18 Oxybutynin Chloride [Ditropan Xl] 5 mg PO PRN PRN 08/20/18 08/20/18 Ranitidine HCl [Acid Wire Stripping Machine Operator] 75 mg PO BID 08/20/18 08/20/18 amLODIPine [Norvasc] 5 mg PO DAILY 08/20/18 08/20/18 Previous Rx's Medication Instructions Recorded Albuterol Sulfate [Proair Hfa] 1 puff IH QID #1 inh 05/12/18 Doxycycline 100 mg PO BID #9 capsule 07/05/18 predniSONE [PredniSONE] 40 mg PO DAILY #2 tablet 07/05/18 Allergies Allergy/AdvReac Type Severity Reaction Status Date / Time ibuprofen [From Advil] Allergy See Verified 07/02/18 10:01 Comments Penicillins Allergy See Verified 07/03/18 13:27 Comments IVP dye Allergy Anaphylaxis Uncoded 07/02/18 10:01 All systems ED: reviewed and negative except as stated. Review of Systems: As Per HPI Constitutional: Denies: fever Cardiovascular: Denies: chest pain Respiratory: Reports: cough, dyspnea, wheezes Gastrointestinal: Denies: abdominal pain, nausea, vomiting Past Medical History - Past Medical History Attestation: Yes The following information was validated with the patient. Medical history: Reports: renal disease, hypertension, coronary artery disease, COPD Surgical history: Reports: cholecystectomy, angioplasty/stent Psychiatric history: Reports: no psych history - Social History Smoking Status: Former smoker Smokeless Tobacco Status: No Alcohol use: Reports: none Drug use: Reports: none Physical Exam - General Limitations: no limitations General appearance: alert - Head Head exam: normocephalic - Eye Eye exam: Present: EOMI - ENT ENT exam: mucous membranes moist - Neck Neck exam: Present: trachea midline - Chest Chest inspection: Present: symmetric chest wall rise - Respiratory Respiratory exam: Present: normal lung sounds bilaterally, wheezes (On right side). Absent: respiratory distress, accessory muscle use - Cardiovascular Cardiovascular exam: Present: regular rate, normal rhythm, normal heart sounds - Abdominal Exam Abdominal exam: Present: soft, Non-Tender. Absent: distention, guarding, rebound, rigidity - Extremities Exam Extremities exam: Present: normal capillary refill - Back Exam Back exam: Present: full ROM - Neurological Exam Neurological exam: Present: alert, oriented X3 - Psychiatric Psychiatric exam: Present: normal affect, normal mood - Skin Skin exam: Present: warm, dry, intact, normal color. Absent: rash Course Vital Signs Temperature 97.7 F 08/20/18 17:58 Pulse Rate 67 08/20/18 17:58 Respiratory Rate 16 08/20/18 17:58 Blood Pressure 143/80 08/20/18 17:58 O2 Sat by Pulse Oximetry 99 08/20/18 17:58 Temperature 97.7 F 08/20/18 17:58 Pulse Rate 84 08/20/18 21:25 Respiratory Rate 16 08/20/18 21:25 Blood Pressure 137/77 08/20/18 21:25 O2 Sat by Pulse Oximetry 100 08/20/18 21:25 Oxygen Delivery Oxygen Delivery Room Air Medical Decision Making - [facility] Narrative Medical decision making narrative: 82-year-old female presents emergency department concern for outpatient manage ment for possible COPD exacerbation as well as pneumonia. Patient's vital signs are normal. On her oxygen via nasal cannula. Patient's chest x-ray reveals persistent left basilar retrocardiac consolidation concerning for pneumonia. Lactic acid was elevated at 2.6. She was given 2 L of fluid via normal saline. Patient was started on broad-spectrum antibiotics with vancomycin and cefepime. Patient was also given DuoNeb's and steroids. Patient did well with the DuoNeb administration. Troponin was negative. Patient hemodynamically stable not in acute acute distress at time of admission to Dr. Marshall for pneumonia and COPD exacerbation that has failed outpatient management. Chest X-Ray 08/20/18 18:08 IMPRESSION: Overall left basilar aeration improved. Persistent left basilar retrocardiac consolidation. D/ / Art Juárez MD / Art Juárez MD Interpreting Provider: Art Juárez MD - Lab Data Result diagrams: 08/20/18 18:52 08/20/18 18:52 Lab Results 08/20/18 08/20/18 08/20/18 Range/Units 18:52 18:52 18:52 WBC 19.4 H (4.3-11.1) K/mcL RBC 4.15 (3.82-4.97) M/mcL Hgb 12.9 (11.5-15.4) g/dL Hct 40.4 (35.3-44.9) % MCV 97.3 (83.0-100.0) fL MCH 31.1 (28.0-33.3) pg MCHC 31.9 (31.6-35.5) g/dL RDW 13.2 (11.5-14.5) % Plt Count 296 (140-400) K/mcL MPV 9.1 L (9.4-12.4) fL Immature Gran % 4.0 (0-4) % Seg Neutrophils % 52.2 % Lymphocytes % 30.6 % Monocytes % 10.3 % Eosinophils % 2.2 % Basophils % 0.7 % Neutrophils # 10.1 H (1.6-8.9) K/mcL Lymphocytes # 5.9 H (0.6-4.6) K/mcL Monocytes # 2.0 H (0.0-1.3) K/mcL Eosinophils # 0.4 (0.0-0.6) K/mcL Basophils # 0.1 (0.0-0.2) K/mcL Nucleated RBCs/100 WBC 0.1 H (0) /100 WBC Sodium 139 (136-145) mEq/L Potassium 4.5 (3.5-5.1) mEq/L Chloride 105 (98-107) mEq/L Carbon Dioxide 20 L (23-29) mEq/L BUN 72 H (8-23) mg/dL Creatinine 1.94 H (0.60-1.20) mg/dL Est GFR ( Amer) 30 L (> 60) Est GFR (Non-Af Amer) 25 L (> 60) BUN/Creatinine Ratio 37 H (6-26) Glucose 85 (70-105) mg/dL Calculated Osmolality 308 H (280-300) Lactic Acid 2.6 H (0.5-2.2) mmol/L Calcium 8.2 L (8.6-10.3) mg/dL Troponin I < 0.03 (< 0.04) ng/mL B-Natriuretic Peptide (Less than 100) pg/mL 08/20/18 08/20/18 Range/Units 18:52 20:17 WBC (4.3-11.1) K/mcL RBC (3.82-4.97) M/mcL Hgb (11.5-15.4) g/dL Hct (35.3-44.9) % MCV (83.0-100.0) fL MCH (28.0-33.3) pg MCHC (31.6-35.5) g/dL RDW (11.5-14.5) % Plt Count (140-400) K/mcL MPV (9.4-12.4) fL Immature Gran % (0-4) % Seg Neutrophils % % Lymphocytes % % Monocytes % % Eosinophils % % Basophils % % Neutrophils # (1.6-8.9) K/mcL Lymphocytes # (0.6-4.6) K/mcL Monocytes # (0.0-1.3) K/mcL Eosinophils # (0.0-0.6) K/mcL Basophils # (0.0-0.2) K/mcL Nucleated RBCs/100 WBC (0) /100 WBC Sodium (136-145) mEq/L Potassium (3.5-5.1) mEq/L Chloride (98-107) mEq/L Carbon Dioxide (23-29) mEq/L BUN (8-23) mg/dL Creatinine (0.60-1.20) mg/dL Est GFR ( Amer) (> 60) Est GFR (Non-Af Amer) (> 60) BUN/Creatinine Ratio (6-26) Glucose (70-105) mg/dL Calculated Osmolality (280-300) Lactic Acid 2.2 (0.5-2.2) mmol/L Calcium (8.6-10.3) mg/dL Troponin I (< 0.04) ng/mL B-Natriuretic Peptide 140 H (Less than 100) pg/mL - EKG Data EKG #1 EKG attestation: Yes I reviewed and interpreted this EKG. EKG results narrative: 18:06 Heart rate 69 bpm, [place] interval 142 ms, QRS duration 136 pulses, QT 470-6, left axis. Sinus rhythm, premature atrial complex, left bundle branch block. No ischemic ST changes. Attestation Statement - Attestation Attestation: Resident Attestation: I examined this patient and my medical decision making was reviewed with the Resident Physician. I agree with the documented findings, disposition and treatment plan as described except to the extent set forth below. We independently had [id number] contact with the patient.EKG reviewed with resident physician. Agree with documentation. Patient presenting for evaluation of worsening shortness of breath and hypoxia. Patient had been admitted for an initial respiratory virus and ended up being admitted later for all was found to be possible MRSA infection. The patient has since not fully recovered. Has continued to get worse and at outpatient appointment today was found to have a low blood pressure systolic of 90. Patient undergoing further evaluation for possible pneumonia. Patient will likely require admission. Patient with mild anterior wheezing, regular rhythm, no acute distress.
[2018-08-20] MEDS ORDERED: Cefepime HCl 2,000 MG in Water for inj. (sterile) 20 ML 20 ML IVP STA ×2 (19:03→19:40)
[2018-08-20 19:31] LABS: Basophils # 0.1 K/mcL (0.0-0.2); Basophils % 0.7 %; Eosinophils # 0.4 K/mcL (0.0-0.6); Eosinophils % 2.2 %; Hematocrit 40.4 % (35.3-44.9); Hemoglobin 12.9 g/dL (11.5-15.4); Lymphocytes # 5.9 K/mcL (0.6-4.6); Lymphocytes % 30.6 %; Mean Corpuscular HGB Conc 31.9 g/dL (31.6-35.5); Mean Corpuscular Hemoglobin 31.1 pg (28.0-33.3); Mean Corpuscular Volume 97.3 fL (83.0-100.0); Mean Platelet Volume 9.1 fL (9.4-12.4); Monocytes % 10.3 %; Neutrophils # 10.1 K/mcL (1.6-8.9); Nucleated Red Blood Cells 0.1 /100 WBC (0); Platelet Count 296 K/mcL (140-400); Red Blood Count 4.15 M/mcL (3.82-4.97); Red Cell Distribution Width 13.2 % (11.5-14.5); Segmented Neutrophils % 52.2 %; White Blood Count 19.4 K/mcL (4.3-11.1)
[2018-08-20 20:25] LABS: BUN/Creatinine Ratio 37 (6-26); Blood Urea Nitrogen 72 mg/dL (8-23); Calcium 8.2 mg/dL (8.6-10.3); Carbon Dioxide 20 mEq/L (23-29); Chloride 105 mEq/L (98-107); Glucose 85 mg/dL (70-105); Osmolality,Calculated 308 (280-300); Potassium 4.5 mEq/L (3.5-5.1); Sodium 139 mEq/L (136-145); Troponin I < 0.03 ng/mL (< 0.04); eGFR For African Americans 30 (> 60); eGFR For Non-African Americans 25 (> 60)
[2018-08-21] MEDS ORDERED: Naloxone 0.4 MG/ML INJ IVP PRN (03:11)
[2018-08-21] MEDS ORDERED: 0.9 % Sodium Chloride 500 ML IVC ONE (03:14)
--- NOTE | 2018-08-21 03:26 | Internal Med History&Physical ---
Date of Encounter: 08/21/18 Time of Encounter: 02:20 Internal Medicine - H&P: HPI Chief complaint: Pneumonia Admitted From: Emergency Dept Plans for Post Hospital Care: Home History of present illness: Ms. Read is a 82 year old female Patient presented to the emergency room with shortness of breath. She had recently been admitted to the hospital in June and discharged on July 05. She was treated at that time for pneumonia, and was discharged on doxycycline as well as steroids. She has a history of COPD, and is on chronic oxygen at home 2 L nasal cannula. She has had increased cough, with change in her sputum color which has become yellow. She went to her primary care physician the day before her admission and was told that she still had pneumonia and she recommended she return to the ER for further evaluation. In the emergency room patient's initial vital signs were within normal limits. CBC: Notable for White count 19.4 BMP: Notable for creatinine of 1.94 and GFR of 25. Lactic acid initially 2.6 Troponin undetectable BNP 140 Nasal screen MRSA PCR positive Chest x-ray shows improved left basilar aeration but there is a persistent left basilar retrocardiac consolidation. EKG showed sinus rhythm with no ischemic changes. She is given 2 L of IV fluids started on vancomycin and cefepime. She is also given DuoNeb nebs and IV steroids. She was admitted to the hospital for further management. Upon my evaluation, patient is resting comfortably in the hospital bed. She states that she feels cold but otherwise denies chest pain, abdominal pain, nausea, vomiting, diarrhea and constipation. She has had vomiting over the last week or so but none recently. She indicates that she has a family history of heart disease and cancer on her mother's side of the family her father of old age and her sister has had cancer. Patient is a full code. Past Med Surg Social Fam HX - Past Medical History Medical history: renal disease, hypertension, coronary artery disease, COPD Additional medical history: anemia, chronic venous insufficiency Psychiatric history: no psych history - Past Surgical History Surgical History: cholecystectomy, angioplasty/stent - Social History Smoking Status: Former smoker Smokeless Tobacco Status: No Alcohol use: none Drug use: none - Family History Mother Living Status: Hx Family Cardiac Disorders: Yes (MYOCARDIAL INFARCTION at age 70s) Internal Medicine - H&P: Meds Multivitamin/Iron/Folic Acid [Centrum Complete Multivit Tab] 1 tab PO DAILY 03/13 09/24 [History] Nitroglycerin [Nitrostat] 0.4 mg SL AD PRN 04/07/15 [History] Albuterol Sulfate [Proair Hfa] 1 puff IH QID #1 inh 05/12/18 [Rx] Aspirin [Adult Aspirin Regimen] 81 mg PO DAILY 07/03/18 [History] Atorvastatin Calcium [Lipitor] 20 mg PO DAILY 07/03/18 [History] Carvedilol [Coreg] 25 mg PO BID 07/03/18 [History] Cholecalciferol (Vitamin D3) [Vitamin D3] 1,000 unit PO DAILY 07/03/18 [History] Fluticasone/Salmeterol [Advair 500-50 Diskus] 1 puff IH DAILY 07/03/18 [History] Loratadine [Allergy Relief] 10 mg PO DAILY 07/03/18 [History] [place]-3/Dha/Epa/Fish Oil [Fish Oil 1,000 mg Softgel] 1 cap PO DAILY 07/03/18 [History] Tiotropium [place] [Spiriva Respimat] 2 puff IH DAILY 07/03/18 [History] Tramadol HCl [Ultram] 50 mg PO Q6H 07/03/18 [History] hydrALAZINE [HydrALAZINE] 50 mg PO BID 07/03/18 [History] Doxycycline 100 mg PO BID #9 capsule 07/05/18 [Rx] predniSONE [PredniSONE] 40 mg PO DAILY #2 tablet 07/05/18 [Rx] Furosemide [Lasix] 60 mg PO DAILY 08/20/18 [History] Levothyroxine Sodium [Levoxyl] 75 mcg PO DAILY 08/20/18 [History] Oxybutynin Chloride [Ditropan Xl] 5 mg PO PRN PRN 08/20/18 [History] Ranitidine HCl [Acid Rfid Manager] 75 mg PO BID 08/20/18 [History] amLODIPine [Norvasc] 5 mg PO DAILY 08/20/18 [History] Allergy/AdvReac Type Severity Reaction Status Date / Time ibuprofen [From Advil] Allergy See Verified 07/02/18 10:01 Comments Penicillins Allergy See Verified 07/03/18 13:27 Comments IVP dye Allergy Anaphylaxis Uncoded 07/02/18 10:01 All Systems PM: A 10-system review of systems was performed and is negative for pertinent findings except as documented above in the HPI. - Constitutional Vitals: Temp Pulse Resp BP Pulse Ox 97.7 F 75 16 128/71 99 08/21/18 00:28 08/21/18 00:28 08/21/18 00:28 08/21/18 00:28 08/21/18 00:28 General appearance: Present: cooperative, A&O X 3, pleasant, no acute distress, answers questions appropriately Exam: - - Head Head exam: Present: normal inspection - Eye Eye exam: Present: EOMI, normal appearance - Respiratory Respiratory exam: Present: CTAB. Absent: rales, respiratory distress, rhonchi, wheezes - Cardiovascular Cardiovascular exam: Present: RRR. Absent: diastolic murmur, systolic murmur - GI/Abdominal GI/Abdominal exam: Present: normal bowel sounds, soft. Absent: tenderness - Extremities Exam Extremities exam: Present: warm, radial pulses palpable and symmetrical. Absent: calf tenderness, pedal edema, tenderness - Neurological Exam Neurological exam: Present: no focal deficits, strengths equal and symetr throughout. Absent: motor sensory deficit, facial droop, speech deficit - Skin Skin exam: Present: dry, normal color, warm Internal Med - H&P Results - Labs CBC & Chem 7: 08/20/18 18:52 08/20/18 18:52 Labs: Short CBC 08/20/18 Range/Units 18:52 WBC 19.4 H (4.3-11.1) K/mcL Hgb 12.9 (11.5-15.4) g/dL Hct 40.4 (35.3-44.9) % Plt Count 296 (140-400) K/mcL Neutrophils # 10.1 H (1.6-8.9) K/mcL BMP 08/20/18 18:52 Sodium 139 Potassium 4.5 Chloride 105 Carbon Dioxide 20 L BUN 72 H Creatinine 1.94 H Glucose 85 Calcium 8.2 L Cardiac Enzymes 08/20/18 Range/Units 18:52 Troponin I < 0.03 (< 0.04) ng/mL - Impressions ITS Impressions Chest X-Ray 08/20/18 18:08 IMPRESSION: Overall left basilar aeration improved. Persistent left basilar retrocardiac consolidation. D/ / Art Juárez MD / Art Juárez MD Interpreting Provider: Art Juárez MD - Assessment and Plan (1) Sepsis Current Visit: Yes Status: Acute Assessment and plan: Patient met sepsis criteria with elevated white count, lactic acid 2.6, increasing to 2.9 and worsening renal function. Chest x-ray revealed left lower lobe consolidation. Patient was started on IV antibiotics in the emergency room. Follow-up blood cultures Continue IV fluid hydration Repeat lactic acid Qualifiers: Sepsis type: sepsis due to unspecified organism Qualified Code(s): A41.9 - Sepsis, unspecified organism (2) Pneumonia Current Visit: Yes Status: Acute Assessment and plan: As seen on patient's chest x-ray. Patient was treated in June for pneumonia as well and discharged on oral antibiotics. Patient has a persistent left basilar consolidation. A 2 view chest x-ray was done on August 14 that showed left basilar pneumonia as well. Radiologist at that time recommended surveillance in 3-4 weeks to ensure that it is clearing. Blood cultures were drawn in the emergency room and MRSA swab was positive. She started on vancomycin and cefepime in the ER. Follow-up blood cultures when available Continue IV antibiotics Monitor for worsening signs of infection Qualifiers: Pneumonia type: due to unspecified organism Laterality: left Lung location: lower lobe of lung Qualified Code(s): J18.9 - Pneumonia, unspecified organism (3) CKD (chronic kidney disease) stage 3, GFR 30-59 ml/min Current Visit: No Status: Chronic Assessment and plan: Patient's baseline creatinine is 1.4-1.5. Her GFR ranges between category 4 and category 3 chronic kidney disease. She received 2 L of IV fluids in the emergency room. Repeat labs in the morning Continue IV fluid hydration (4) COPD exacerbation Current Visit: Yes Status: Acute Assessment and plan: Patient improved after receiving breathing treatments and steroids in the emergency room. She is on chronic oxygen at home at 2 L mainly at night. Continue breathing treatments Continue steroids Oxygen supplementation as needed Treating pneumonia as above (5) DVT prophylaxis Current Visit: No Status: Acute Assessment and plan: Subcutaneous heparin - Time Spent With Patient Total time spent is greater than 50% in coordination of care (as documented) at patient's floor/unit and/or counseling patient: Greater than 35 minutes
[2018-08-21] MEDS ORDERED: Albuterol 2.5 MG/3 ML NEBULIZER IH PRN (03:36)
[2018-08-21] MEDS: Ipratropium/Albuterol Neb 3 ML IH SCH ×4 (04:21→22:06)
[2018-08-21] MEDS: MethylPREDNISolone 40 MG/ML VIAL IVP SCH ×3 (05:23→17:59)
[2018-08-21] MEDS: *HR* Heparin 5,000 UNIT/ML VIAL SQ SCH ×2 (05:23→17:59)
[2018-08-21 05:38] LABS: Hematocrit 35.2 % (35.3-44.9); Hemoglobin 11.6 g/dL (11.5-15.4); Mean Corpuscular Hemoglobin 31.4 pg (28.0-33.3); Mean Corpuscular Volume 95.1 fL (83.0-100.0); Mean Platelet Volume 8.9 fL (9.4-12.4); Platelet Count 278 K/mcL (140-400); Red Cell Distribution Width 13.3 % (11.5-14.5); White Blood Count 11.1 K/mcL (4.3-11.1)
[2018-08-21 05:55] LABS: Calcium 7.7 mg/dL (8.6-10.3); Potassium 3.8 mEq/L (3.5-5.1)
[2018-08-21] MEDS ORDERED: Cefepime HCl 2,000 MG in Water for inj. (sterile) 20 ML 20 ML IVP SCH (08:00)
--- NOTE | 2018-08-21 08:44 | Event Note ---
Date of Encounter: 08/21/18 Time of Encounter: 08:44 Patient seen and examined this morning at bedside. Admitted overnight for shortness of breath. Recently treated for pneumonia. Breathing better. Doing well without oxygen even when I examined the patient. Denies fevers chills nausea vomiting bowel or bladder complaints.Respiratory and cardiovascular examinations unremarkable. No pedal edema. Continue empiric antibiotics and Solu-Medrol for COPD exacerbation and HCAP. Unclear organism. Follow blood and sputum culture. MRSA screen positive. get RIP and urine ag.
[2018-08-21] MEDS ORDERED: Vancomycin 500 MG in 0.9 % Sodium Chloride Mini Bag 100 ML IVPB ONE (11:00)
[2018-08-21 13:09] LABS: Adenovirus Not Detected (Not Detect); Bordetella Pertussis Not Detected (Not Detect); Chlamydophila pneumoniae Not Detected (Not Detect); Coronavirus 229E Not Detected (Not Detect); Coronavirus HKU1 Not Detected (Not Detect); Coronavirus NL63 Not Detected (Not Detect); Coronavirus OC43 Not Detected (Not Detect); Human Metapneumovirus Not Detected (Not Detect); Human Rhinovirus/Enterovirus Not Detected (Not Detect); Influenza A Subtype 2009 H1 Not Detected (Not Detect); Influenza A Untypeable Not Detected (Not Detect); Influenza B Not Detected (Not Detect); Mycoplasma pneumoniae Not Detected (Not Detect); Parainfluenza Virus 1 Not Detected (Not Detect); Parainfluenza Virus 2 Not Detected (Not Detect); Parainfluenza Virus 3 Not Detected (Not Detect); Parainfluenza Virus 4 Not Detected (Not Detect); Respiratory Syncytial Virus Not Detected (Not Detect)
--- NOTE | 2018-08-21 16:46 | Electrocardiograph Report ---
[address] [address] Test Date: 2018-08-20 Pat Name: Desi Read Department: EXAM8 Room: 3A42 Gender: F It Software Engineer: : [id number] Requested By: Jeff Salas Order Number: [id number] Reading MD: Luis Miguel Castillo Measurements Intervals [place] Rate: 69 P: 53 WI: 142 QRS: -49 QRSD: 136 T: 72 QT: 417 QTc: 447 Interpretive Statements Sinus rhythm Atrial premature complex Left bundle branch block Electronically Signed On 08-21-2018 16:44:26 EDT by Luis Miguel Castillo
[2018-08-21] MEDS ORDERED: Famotidine 20 MG TABLET PO SCH (22:45)
[2018-08-21] MEDS: Acetaminophen 325 MG TABLET PO PRN (23:24)
[2018-08-22] MEDS: Ipratropium/Albuterol Neb 3 ML IH SCH ×4 (03:50→22:31)
[2018-08-22] MEDS: MethylPREDNISolone 40 MG/ML VIAL IVP SCH ×2 (05:29→18:05)
[2018-08-22] MEDS: *HR* Heparin 5,000 UNIT/ML VIAL SQ SCH ×2 (05:29→17:57)
[2018-08-22 06:17] LABS: Basophils % 0.1 %
[2018-08-22 06:19] LABS: Hematocrit 34.3 % (35.3-44.9); Hemoglobin 11.3 g/dL (11.5-15.4); Immature Granulocytes % 1.5 % (0-4); Lymphocytes # 2.3 K/mcL (0.6-4.6); Lymphocytes % 8.4 %; Mean Corpuscular HGB Conc 32.9 g/dL (31.6-35.5); Mean Corpuscular Hemoglobin 31.4 pg (28.0-33.3); Mean Corpuscular Volume 95.3 fL (83.0-100.0); Monocytes # 1.4 K/mcL (0.0-1.3); Platelet Count 282 K/mcL (140-400); Red Cell Distribution Width 13.4 % (11.5-14.5); White Blood Count 26.9 K/mcL (4.3-11.1)
[2018-08-22 06:34] LABS: Neutrophils # 22.9 K/mcL (1.6-8.9)
[2018-08-22 06:35] LABS: Calcium 7.9 mg/dL (8.6-10.3); Potassium 3.7 mEq/L (3.5-5.1)
[2018-08-22 07:17] LABS: Platelet Estimate Normal (Normal)
[2018-08-22] MEDS: Famotidine 20 MG TABLET PO SCH (09:20)
[2018-08-22] MEDS: Aspirin Enteric Coated 81 MG Tablet PO SCH (09:21)
[2018-08-22] MEDS: Acetaminophen 325 MG TABLET PO PRN ×2 (09:21→20:45)
[2018-08-22] MEDS: Cefepime HCl 2,000 MG in Water for inj. (sterile) 20 ML 20 ML IVP SCH (09:23)
[2018-08-22] MEDS: Budesonide/Formoterol 160/4.5 1 PUFF INH IH SCH ×2 (10:59→22:32)
--- NOTE | 2018-08-22 11:15 | Internal Med Progress Note ---
Hospitalist Progress Note - Encounter Date of Encounter: 08/22/18 Time of Encounter: 11:15 - Subjective Interval History: Patient seen and examined this morning at bedside. No acute overnight events. Patient complains of, cough and some heartburn. Denies any shortness of breath. Denies any abdominal pain nausea vomiting or diarrhea. - Exam Vitals: Temp Pulse Resp BP Pulse Ox 98.1 F 86 17 150/69 93 08/22/18 08:40 08/22/18 08:40 08/22/18 10:59 08/22/18 08:40 08/22/18 10:59 Exam: General: In no acute distress. Respiratory exam: CTAB. no accessory muscle use. Occasional rhonchi Cardiovascular exam: RRR, +S1, +S2. no murmur, gallop, rubs. GI/Abdominal exam: Non-tender, Non-distended, normal bowel sounds, soft, no peritoneal signs. Extremities exam: no pedal edema, pulses palpable in b/l lower extremities. no calf tenderness Neurological exam: CN II-XII intact, AO X3, no focal deficits. Skin exam: No skin rash - Assessment and Plan (1) DVT prophylaxis Current Visit: No Status: Acute (2) CKD (chronic kidney disease) stage 3, GFR 30-59 ml/min Current Visit: No Status: Chronic (3) Pneumonia Current Visit: Yes Status: Acute (4) COPD exacerbation Current Visit: Yes Status: Acute (5) Sepsis Current Visit: Yes Status: Acute - Summary of Assessment and Plan Summary of Assessment and Plan: Assessment Acute Sepsis- resolved Pneumonia COPD exacerbation JULI on CKD Chronic CKD 3 HTN COPD CAD Plan - c/w empiric cefepime and vancomycin. Had MRSA in sputum during last admission and was discharge with doxycycline. Sepsis resolved - CXR with improved Lt basilar aeration with persistant basilar consolidation. MRSA screen positive. RIP and urine ag negative. Will consult pulmonology as family insistent that she needs bronchoscopy. - f/u blood and sputum cultures - Renal function improved with IVF. approaching baseline - Leukocytosis possibly from steroid use. c/w steroid taper, symbicort and bronchodilators. Patient clinically better. c/w supplemental oxygen - Subcutaneous heparin for dvt prophylaxis - Time Spent with Patient Total time spent is greater than 50% in coordination of care (as documented) at patient's floor/unit and/or counseling patient: Internal Medicine: Result - Labs CBC & Chem 7: 08/22/18 05:56 08/22/18 05:56 Labs: Short CBC 08/22/18 Range/Units 05:56 WBC 26.9 H D (4.3-11.1) K/mcL Hgb 11.3 L (11.5-15.4) g/dL Hct 34.3 L (35.3-44.9) % Plt Count 282 (140-400) K/mcL Neutrophils # 22.9 H (1.6-8.9) K/mcL BMP 08/22/18 05:56 Sodium 138 Potassium 3.7 Chloride 105 Carbon Dioxide 21 L BUN 56 H Creatinine 1.63 H Glucose 141 H Calcium 7.9 L Consult Discharge Plan - Plan Instructions: Methicillin Resistant Staphylococcus Aureus (DC) Referrals: Mandi Salazar [Primary Care Provider] - (3) Pneumonia Qualifiers: Pneumonia type: due to unspecified organism Laterality: left Lung location: lower lobe of lung Qualified Code(s): J18.1 - Lobar pneumonia, unspecified organism (5) Sepsis Qualifiers: Sepsis type: sepsis due to unspecified organism Qualified Code(s): A41.9 - Sepsis, unspecified organism
[2018-08-22] MEDS ORDERED: Vancomycin 500 MG in 0.9 % Sodium Chloride Mini Bag 100 ML IVPB ONE (14:00)
--- NOTE | 2018-08-22 14:02 | Pulmonology Consult Note ---
Date of Encounter: 08/22/18 Time of Encounter: 15:30 Assessment and Plan (1) Acute exacerbation of chronic obstructive airways disease Current Visit: No Status: Suspected Patient has been on Spiriva and that needs to be stopped when she is discharged home. This is one her home medications and I have explained this to the family, especially with CKD. Otherwise it is reasonable to treat patient with systemic steroid and empiric antibiotics. She will need outpatient work up. Before discharge home, she will need evaluation for O2 need. (2) Pneumonia Current Visit: Yes Status: Acute Patient has been having recurrent pneumonia and I had a long discussion with the family and patient about bronchoscopy and explained to them all the risks, alternatives and benefits of the procedure and they understand and agreed to have done. I have answered all their questions and thanks for consultation. I will arrange bronchoscopy to be done tomorrow. Qualifiers: Pneumonia type: due to unspecified organism Laterality: left Lung location: lower lobe of lung Qualified Code(s): J18.1 - Lobar pneumonia, unspecified organism History of Present Illness Consult date: 08/22/18 Requesting physician: José Villavicencio Reason for consult: pneumonia Chief complaint: Shortness of Breath History of present illness: This is a pleasant 82 year old female with history of COPD, however according to her and her daughter there was never PFT done and she has been having recurrent pneumonia. Patient is a poor historian and this history mainly taken from the daughter and granddaughter. Patient has been on Spiriva for long time and she use O2 according to them. She has been having more dyspnea and productive cough and according to patient she is feeling better and she was started on broad- spectrum antibiotics. She denies any fever or chills now. She denies any weight loss. She denies any recent travel. Past Med Surg Social Fam HX - Past Medical History Medical history: renal disease, hypertension, coronary artery disease, COPD Additional medical history: anemia, chronic venous insufficiency Psychiatric history: no psych history - Past Surgical History Surgical History: cholecystectomy, angioplasty/stent - Social History Smoking Status: Former smoker Smokeless Tobacco Status: No Alcohol use: none Drug use: none - Family History Mother Living Status: Hx Family Cardiac Disorders: Yes (MYOCARDIAL INFARCTION at age 70s) Medications and Allergies Multivitamin/Iron/Folic Acid [Centrum Complete Multivit Tab] 1 tab PO DAILY 04/07/15 [History] Nitroglycerin [Nitrostat] 0.4 mg SL AD PRN 04/07/15 [History] Albuterol Sulfate [Proair Hfa] 1 puff IH QID #1 inh 05/12/18 [Rx] Aspirin [Adult Aspirin Regimen] 81 mg PO DAILY 07/03/18 [History] Atorvastatin Calcium [Lipitor] 20 mg PO DAILY 07/03/18 [History] Carvedilol [Coreg] 25 mg PO BID 07/03/18 [History] Cholecalciferol (Vitamin D3) [Vitamin D3] 1,000 unit PO DAILY 07/03/18 [History] Loratadine [Allergy Relief] 10 mg PO DAILY PRN 07/03/18 [History] [place]-3/Dha/Epa/Fish Oil [Fish Oil 1,000 mg Softgel] 1 cap PO DAILY 07/03/18 [History] Tiotropium [place] [Spiriva Respimat] 1 puff IH BID 07/03/18 [History] Tramadol HCl [Ultram] 50 mg PO HS 07/03/18 [History] hydrALAZINE [HydrALAZINE] 50 mg PO BID 07/03/18 [History] Doxycycline 100 mg PO BID #9 capsule 07/05/18 [Rx] predniSONE [PredniSONE] 40 mg PO DAILY #2 tablet 07/05/18 [Rx] Furosemide [Lasix] 60 mg PO DAILY 08/20/18 [History] Levothyroxine Sodium [Levoxyl] 75 mcg PO DAILY 08/20/18 [History] Oxybutynin Chloride [Ditropan Xl] 5 mg PO DAILY PRN 08/20/18 [History] Ranitidine HCl [Acid Olap Developer] 75 mg PO BID 08/20/18 [History] amLODIPine [Norvasc] 5 mg PO DAILY 08/20/18 [History] Allergy/AdvReac Type Severity Reaction Status Date / Time ibuprofen [From Advil] Allergy See Verified 08/22/18 10:09 Comments Penicillins Allergy See Verified 08/22/18 10:09 Comments IVP dye Allergy Anaphylaxis Uncoded 07/02/18 10:01 All Systems: The remainder of the systems were reviewed and are negative Physical Examination Vital Signs: Vital Signs, Last 4 Hours Temp Pulse Resp BP Pulse Ox 08/22/18 13:23 98.6 F 72 14 130/76 99 08/22/18 10:59 17 93 General appearance: no acute distress Eyes: nonicteric ENT: oropharynx moist Neck: supple, no lymphadenopathy Effort: normal Inspection: hyperextended Auscultation: bilateral: rhonchi (scattered) Percussion: bilateral: not dull Cardiovascular: regular rate and rhythm Gastrointestinal: normoactive bowel sounds, non-distended Extremities: no cyanosis, edema normal mental status, non-focal exam mood appropriate Results - Laboratory Findings CBC and BMP: 08/22/18 05:56 08/22/18 05:56 Abnormal lab findings: Abnormal lab results WBC 26.9 K/mcL (4.3-11.1) H D 08/22/18 05:56 RBC 3.60 M/mcL (3.82-4.97) L 08/22/18 05:56 Hgb 11.3 g/dL (11.5-15.4) L 08/22/18 05:56 Hct 34.3 % (35.3-44.9) L 08/22/18 05:56 MPV 9.0 fL (9.4-12.4) L 08/22/18 05:56 22.9 K/mcL (1.6-8.9) H 08/22/18 05:56 5.9 K/mcL (0.6-4.6) H 08/20/18 18:52 1.4 K/mcL (0.0-1.3) H 08/22/18 05:56 Nucleated RBCs/100 WBC 0.1 /100 WBC (0) H 08/20/18 18:52 Chloride 109 mEq/L (98-107) H 08/21/18 05:23 Carbon Dioxide 21 mEq/L (23-29) L 08/22/18 05:56 BUN 56 mg/dL (8-23) H 08/22/18 05:56 1.63 mg/dL (0.60-1.20) H 08/22/18 05:56 Est GFR ( Amer) 37 (> 60) L 08/22/18 05:56 Est GFR (Non-Af Amer) 30 (> 60) L 08/22/18 05:56 34 (6-26) H 08/22/18 05:56 Glucose 141 mg/dL (70-105) H 08/22/18 05:56 304 (280-300) H 08/22/18 05:56 Lactic Acid 2.9 mmol/L (0.5-2.2) H 08/20/18 23:11 Calcium 7.9 mg/dL (8.6-10.3) L 08/22/18 05:56 B-Natriuretic Peptide 140 pg/mL (Less than 100) H 08/20/18 18:52 Positive (Negative) A 08/21/18 00:05 - Microbiology Findings Microbiology Findings: Microbiology, Last 48 Hours 08/21/18 09:15 Sputum Culture - Preliminary Sputum 08/21/18 12:55 Legionella Antigen - Final Urine,Clean Catch Streptococcus pneumoniae Antigen (M - Final 08/20/18 18:52 Blood Culture - Preliminary Peripheral Venipuncture Culture is incubating and being continuously monitored for growth. Final report to follow. 08/20/18 18:52 Blood Culture - Preliminary Peripheral Venipuncture Culture is incubating and being continuously monitored for growth. Final report to follow. - Diagnostic Findings Chest x-ray: report reviewed, image reviewed - Clinical Findings Intake & Output: Intake & Output 08/21/18 08/22/18 08/22/18 23:59 07:59 15:59 Intake Total 0 / 240 240 / 240 Balance 0 / 240 240 / 240 Weight 60.7 kg Consult Discharge Plan - Plan Instructions: Methicillin Resistant Staphylococcus Aureus (DC) Referrals: Mandi Salazar [Primary Care Provider] -
[2018-08-22] MEDS: Furosemide 40 MG TABLET PO SCH (18:05)
[2018-08-23] MEDS: Ipratropium/Albuterol Neb 3 ML IH SCH ×4 (04:22→22:09)
[2018-08-23 04:47] LABS: Basophils % 0.2 %; Hematocrit 33.8 % (35.3-44.9); Hemoglobin 10.9 g/dL (11.5-15.4); Immature Granulocytes % 1.4 % (0-4); Lymphocytes # 1.5 K/mcL (0.6-4.6); Lymphocytes % 7.4 %; Mean Corpuscular HGB Conc 32.2 g/dL (31.6-35.5); Mean Corpuscular Hemoglobin 31.1 pg (28.0-33.3); Mean Corpuscular Volume 96.6 fL (83.0-100.0); Mean Platelet Volume 9.1 fL (9.4-12.4); Monocytes # 1.2 K/mcL (0.0-1.3); Monocytes % 5.9 %; Neutrophils # 16.8 K/mcL (1.6-8.9); Platelet Count 261 K/mcL (140-400); Red Cell Distribution Width 13.5 % (11.5-14.5); Segmented Neutrophils % 85.1 %; White Blood Count 19.7 K/mcL (4.3-11.1)
[2018-08-23 05:06] LABS: Calcium 7.7 mg/dL (8.6-10.3); Potassium 3.9 mEq/L (3.5-5.1)
[2018-08-23] MEDS: *HR* Heparin 5,000 UNIT/ML VIAL SQ SCH ×2 (05:41→18:31)
[2018-08-23] MEDS: MethylPREDNISolone 40 MG/ML VIAL IVP SCH (05:47)
[2018-08-23] MEDS ORDERED: Albuterol 2.5 MG/3 ML NEBULIZER IH ONE (07:38)
[2018-08-23] MEDS ORDERED: *HR* Midazolam HCl 5 MG/5 ML VIAL IVP ONE ×2 (07:38→11:24)
[2018-08-23] MEDS ORDERED: *HR* FentaNYL (PF) 100 MCG/2 ML VIAL IVP ONE (07:38)
[2018-08-23] MEDS ORDERED: *HR* EPINEPHrine 1 MG/10 ML SYRINGE INTRATRACH PRN (07:38)
[2018-08-23] MEDS ORDERED: Lidocaine Viscous Oral Soln 15 ML SOLUTION MM ONE (07:38)
--- NOTE | 2018-08-23 07:38 | Pre-Sedation Evaluation ---
Pre-sedation evaluation - Pre-sedation checklist Date of procedure: 08/23/18 Procedure: Bronchoscopy Recent Vitals: Last Vital Signs Temp 98.0 F 08/23/18 07:34 Pulse 71 08/23/18 07:34 Resp 16 08/23/18 07:34 BP 138/71 08/23/18 07:34 Pulse Ox 94 08/23/18 07:34 Possible difficult airway: No ASA Classification *see protocol: CLASS II-Mild systemic disease Plan of Care: Pt appropriate candidate for procedure/moderate/conscious sedation, Risks/benefits of procedure/sedation discussed w/ patient/family
[2018-08-23] MEDS ORDERED: 0.9 % Sodium Chloride 1,000 ML IVC SCH (07:45)
[2018-08-23] MEDS: Cefepime HCl 2,000 MG in Water for inj. (sterile) 20 ML 20 ML IVP SCH (07:56)
[2018-08-23] MEDS: Aspirin Enteric Coated 81 MG Tablet PO SCH (08:04)
[2018-08-23] MEDS: Furosemide 40 MG TABLET PO SCH (08:04)
[2018-08-23] MEDS: Famotidine 20 MG TABLET PO SCH (08:04)
[2018-08-23] MEDS: Budesonide/Formoterol 160/4.5 1 PUFF INH IH SCH ×2 (11:22→22:10)
[2018-08-23] MEDS ORDERED: Lidocaine Viscous Oral Soln 15 ML SOLUTION ONE (11:29)
--- NOTE | 2018-08-23 12:06 | Internal Med Progress Note ---
Hospitalist Progress Note - Encounter Date of Encounter: 08/23/18 Time of Encounter: 10:04 - Subjective Interval History: Patient seen and examined this morning at bedside. No acute overnight events. Denies any new complaints. Denies any difficulty breathing. Cough improved significantly. Denies any chest pain and nausea vomiting or diarrhea. - Exam Vitals: Temp Pulse Resp BP Pulse Ox 98.1 F 85 16 160/74 98 08/23/18 11:32 08/23/18 12:00 08/23/18 12:00 08/23/18 12:00 08/23/18 12:00 Exam: General: In no acute distress. Respiratory exam: CTAB. no accessory muscle use. Cardiovascular exam: RRR, +S1, +S2. no murmur, gallop, rubs. GI/Abdominal exam: Non-tender, Non-distended, normal bowel sounds, soft, no peritoneal signs. Extremities exam: trace pedal edema, pulses palpable in b/l lower extremities. no calf tenderness Neurological exam: CN II-XII intact, AO X3, no focal deficits. Skin exam: No skin rash - Assessment and Plan (1) DVT prophylaxis Current Visit: No Status: Acute (2) CKD (chronic kidney disease) stage 3, GFR 30-59 ml/min Current Visit: No Status: Chronic (3) Pneumonia Current Visit: Yes Status: Acute (4) COPD exacerbation Current Visit: Yes Status: Acute (5) Sepsis Current Visit: Yes Status: Acute - Summary of Assessment and Plan Summary of Assessment and Plan: Assessment Acute Sepsis- resolved HCAP- unclear organism, possibly bacterial COPD exacerbation JULI on CKD leukocytosis Chronic CKD 3 HTN COPD CAD Plan - Plan for bronchoscopy with pulmonology today. NPO - c/w empiric cefepime and vancomycin. On day 4 today. Had MRSA in sputum during last admission and was discharge with doxycycline. Sepsis resolved. CXR with improved Lt basilar aeration with persistant basilar consolidation. MRSA screen positive. RIP and urine ag negative. Will likely switch to levaquin and clindamycin depending on bronchoscopy and local intermodal truck driver recommendations. - blood and sputum cultures NGTD - Renal function stable and now around baseline. Home lasix resumed at decreased dose yesterday. - Leukocytosis possibly from steroid use. c/w steroid taper, symbicort and bronchodilators. Patient clinically better. c/w supplemental oxygen. Will need O2 qualification before discharge and stop spiriva given ckd per pulm recommendation - Subcutaneous heparin for dvt prophylaxis Internal Medicine: Result - Labs CBC & Chem 7: 08/23/18 04:17 08/23/18 04:17 Labs: Short CBC 08/23/18 Range/Units 04:17 WBC 19.7 H (4.3-11.1) K/mcL Hgb 10.9 L (11.5-15.4) g/dL Hct 33.8 L (35.3-44.9) % Plt Count 261 (140-400) K/mcL Neutrophils # 16.8 H (1.6-8.9) K/mcL BMP 08/23/18 04:17 Sodium 136 Potassium 3.9 Chloride 108 H Carbon Dioxide 21 L BUN 57 H Creatinine 1.62 H Glucose 138 H Calcium 7.7 L Consult Discharge Plan - Plan Instructions: Methicillin Resistant Staphylococcus Aureus (DC) Referrals: Mandi Salazar [Primary Care Provider] - (3) Pneumonia Qualifiers: Pneumonia type: due to unspecified organism Laterality: left Lung location: lower lobe of lung Qualified Code(s): J18.1 - Lobar pneumonia, unspecified organism (5) Sepsis Qualifiers: Sepsis type: sepsis due to unspecified organism Qualified Code(s): A41.9 - Sepsis, unspecified organism
[2018-08-23] MEDS: amLODIPine 5 MG TABLET PO SCH (14:25)
[2018-08-23] MEDS: Vancomycin 500 MG in 0.9 % Sodium Chloride Mini Bag 100 ML IVPB SCH (15:55)
[2018-08-23] MEDS: Acetaminophen 325 MG TABLET PO PRN (20:50)
[2018-08-23] MEDS: hydrALAZINE 25 MG TABLET PO SCH (20:50)
[2018-08-23 22:16] LABS: Appearance of Body Fluid Cloudy (Clear); Volume of Body Fluid 17 mL
[2018-08-24] MEDS: Ipratropium/Albuterol Neb 3 ML IH SCH ×4 (04:12→22:03)
[2018-08-24] MEDS: *HR* Heparin 5,000 UNIT/ML VIAL SQ SCH ×2 (05:52→17:46)
[2018-08-24] MEDS: Acetaminophen 325 MG TABLET PO PRN ×2 (05:52→20:31)
[2018-08-24] MEDS: Cefepime HCl 2,000 MG in Water for inj. (sterile) 20 ML 20 ML IVP SCH (07:26)
[2018-08-24] MEDS: Aspirin Enteric Coated 81 MG Tablet PO SCH (07:27)
[2018-08-24] MEDS: Famotidine 20 MG TABLET PO SCH (07:27)
[2018-08-24] MEDS: amLODIPine 5 MG TABLET PO SCH (07:27)
[2018-08-24] MEDS: Furosemide 40 MG TABLET PO SCH (07:27)
[2018-08-24] MEDS: hydrALAZINE 25 MG TABLET PO SCH ×2 (07:27→20:30)
[2018-08-24] MEDS: predniSONE 20 MG TABLET PO SCH (07:28)
[2018-08-24 07:59] LABS: Basophils % 0.2 %; Eosinophils % 0.1 %; Hematocrit 34.3 % (35.3-44.9); Hemoglobin 11.1 g/dL (11.5-15.4); Immature Granulocytes % 1.5 % (0-4); Lymphocytes # 2.6 K/mcL (0.6-4.6); Lymphocytes % 16.3 %; Mean Corpuscular HGB Conc 32.4 g/dL (31.6-35.5); Mean Corpuscular Hemoglobin 31.2 pg (28.0-33.3); Mean Corpuscular Volume 96.3 fL (83.0-100.0); Mean Platelet Volume 9.3 fL (9.4-12.4); Monocytes # 1.9 K/mcL (0.0-1.3); Monocytes % 11.7 %; Neutrophils # 11.3 K/mcL (1.6-8.9); Platelet Count 219 K/mcL (140-400); Red Blood Count 3.56 M/mcL (3.82-4.97); Red Cell Distribution Width 13.6 % (11.5-14.5); Segmented Neutrophils % 70.2 %; White Blood Count 16.1 K/mcL (4.3-11.1)
[2018-08-24 08:16] LABS: Calcium 7.6 mg/dL (8.6-10.3); Potassium 3.9 mEq/L (3.5-5.1)
[2018-08-24] MEDS: Budesonide/Formoterol 160/4.5 1 PUFF INH IH SCH ×2 (11:32→22:03)
--- NOTE | 2018-08-24 12:48 | Internal Med Progress Note ---
Hospitalist Progress Note - Encounter Date of Encounter: 08/24/18 Time of Encounter: 09:46 - Subjective Interval History: Patient seen and examined this morning and [place]. No acute overnight events. Denies new complaints. Breathing improved. Denies any chest pain fever nausea vomiting or diarrhea. Has some constipation. - Exam Vitals: Temp Pulse Resp BP Pulse Ox 97.9 F 69 16 105/66 97 08/24/18 10:58 08/24/18 10:58 08/24/18 10:58 08/24/18 10:58 08/24/18 10:58 Exam: General: In no acute distress. Respiratory exam: CTAB. no accessory muscle use. Cardiovascular exam: RRR, +S1, +S2. no murmur, gallop, rubs. GI/Abdominal exam: Non-tender, Non-distended, normal bowel sounds, soft, no peritoneal signs. Extremities exam: trace pedal edema, pulses palpable in b/l lower extremities. no calf tenderness Neurological exam: CN II-XII intact, AO X3, no focal deficits. Skin exam: No skin rash - Assessment and Plan (1) DVT prophylaxis Current Visit: No Status: Acute (2) CKD (chronic kidney disease) stage 3, GFR 30-59 ml/min Current Visit: No Status: Chronic (3) Pneumonia Current Visit: Yes Status: Acute (4) COPD exacerbation Current Visit: Yes Status: Acute (5) Sepsis Current Visit: Yes Status: Acute - Summary of Assessment and Plan Summary of Assessment and Plan: Assessment Acute Sepsis- resolved HCAP- unclear organism, possibly bacterial COPD exacerbation JULI on CKD leukocytosis Chronic CKD 3 HTN COPD CAD Plan - s/p bronchoscopy on 08/23 with BAL, copious mucopurulent secretion and mucous plug with friable mucosa in LLL. - c/w empiric cefepime and vancomycin. On day 5 today. Had MRSA in sputum during last admission. Sepsis resolved. MRSA screen positive. RIP and urine ag negative. Gram stain from BAL without bacteria. Will f/u final BAL cultures. ticker wirer recommendations appreciated - blood and sputum cultures NGTD. - Renal function stable and now around baseline. Home lasix resumed at decreased dose - Leukocytosis possibly from steroid use. Improving. c/w steroid taper, symbicort and bronchodilators. Patient clinically better. c/w supplemental o xygen. Will need O2 qualification before discharge and stop home spiriva given ckd per pulm recommendation - Subcutaneous heparin for dvt prophylaxis - Time Spent with Patient Total time spent is greater than 50% in coordination of care (as documented) at patient's floor/unit and/or counseling patient: Internal Medicine: Result - Labs CBC & Chem 7: 08/24/18 06:36 08/24/18 06:36 Labs: Short CBC 08/24/18 Range/Units 06:36 WBC 16.1 H (4.3-11.1) K/mcL Hgb 11.1 L (11.5-15.4) g/dL Hct 34.3 L (35.3-44.9) % Plt Count 219 (140-400) K/mcL Neutrophils # 11.3 H (1.6-8.9) K/mcL BMP 08/24/18 06:36 Sodium 136 Potassium 3.9 Chloride 108 H Carbon Dioxide 22 L BUN 52 H Creatinine 1.34 H Glucose 93 Calcium 7.6 L Consult Discharge Plan - Plan Instructions: Methicillin Resistant Staphylococcus Aureus (DC) Referrals: Mandi Salazar [Primary Care Provider] - (3) Pneumonia Qualifiers: Pneumonia type: due to unspecified organism Laterality: left Lung location: lower lobe of lung Qualified Code(s): J18.1 - Lobar pneumonia, unspecified organism (5) Sepsis Qualifiers: Sepsis type: sepsis due to unspecified organism Qualified Code(s): A41.9 - Sepsis, unspecified organism
[2018-08-24] MEDS: Vancomycin 500 MG in 0.9 % Sodium Chloride Mini Bag 100 ML IVPB SCH (14:15)
[2018-08-25] MEDS: Ipratropium/Albuterol Neb 3 ML IH SCH ×4 (04:13→22:21)
[2018-08-25] MEDS: *HR* Heparin 5,000 UNIT/ML VIAL SQ SCH ×2 (06:16→17:52)
[2018-08-25 06:45] LABS: Basophils % 0.1 %; Hematocrit 31.7 % (35.3-44.9); Hemoglobin 10.4 g/dL (11.5-15.4); Immature Granulocytes % 1.2 % (0-4); Lymphocytes # 1.9 K/mcL (0.6-4.6); Lymphocytes % 12.8 %; Mean Corpuscular HGB Conc 32.8 g/dL (31.6-35.5); Mean Corpuscular Volume 94.6 fL (83.0-100.0); Mean Platelet Volume 9.5 fL (9.4-12.4); Monocytes # 1.3 K/mcL (0.0-1.3); Monocytes % 8.9 %; Neutrophils # 11.2 K/mcL (1.6-8.9); Platelet Count 185 K/mcL (140-400); Red Blood Count 3.35 M/mcL (3.82-4.97); Red Cell Distribution Width 13.6 % (11.5-14.5); White Blood Count 14.5 K/mcL (4.3-11.1)
[2018-08-25 07:05] LABS: Calcium 7.8 mg/dL (8.6-10.3); Potassium 4.1 mEq/L (3.5-5.1)
[2018-08-25] MEDS: Cefepime HCl 2,000 MG in Water for inj. (sterile) 20 ML 20 ML IVP SCH (07:21)
[2018-08-25] MEDS: Famotidine 20 MG TABLET PO SCH (07:26)
[2018-08-25] MEDS: predniSONE 20 MG TABLET PO SCH (07:26)
[2018-08-25] MEDS: Aspirin Enteric Coated 81 MG Tablet PO SCH (07:26)
[2018-08-25] MEDS: amLODIPine 5 MG TABLET PO SCH (07:26)
[2018-08-25] MEDS: hydrALAZINE 25 MG TABLET PO SCH ×2 (07:26→21:16)
[2018-08-25] MEDS: Furosemide 40 MG TABLET PO SCH (07:26)
[2018-08-25] MEDS: Budesonide/Formoterol 160/4.5 1 PUFF INH IH SCH ×2 (10:50→22:21)
--- NOTE | 2018-08-25 11:52 | Internal Med Progress Note ---
Hospitalist Progress Note - Encounter Date of Encounter: 08/25/18 Time of Encounter: 08:52 - Subjective Interval History: Patient seen and examined this morning which appeared no acute overnight events. Patient feeling much better. Denies any fevers chills nausea vomiting or diarrhea. Had bowel movement yesterday. Denies any difficulty breathing. D enies any abdominal pain chest pain. - Exam Vitals: Temp Pulse Resp BP Pulse Ox 97.6 F 68 19 104/59 98 08/25/18 11:03 08/25/18 11:03 08/25/18 11:03 08/25/18 11:03 08/25/18 11:03 Exam: General: In no acute distress. Respiratory exam: CTAB. no accessory muscle use. Cardiovascular exam: RRR, +S1, +S2. no murmur, gallop, rubs. GI/Abdominal exam: Non-tender, Non-distended, normal bowel sounds, soft, no peritoneal signs. Extremities exam: trace pedal edema, pulses palpable in b/l lower extremities. no calf tenderness Neurological exam: CN II-XII intact, AO X3, no focal deficits. Skin exam: No skin rash - Assessment and Plan (1) DVT prophylaxis Current Visit: No Status: Acute (2) CKD (chronic kidney disease) stage 3, GFR 30-59 ml/min Current Visit: No Status: Chronic (3) Pneumonia Current Visit: Yes Status: Acute (4) COPD exacerbation Current Visit: Yes Status: Acute (5) Sepsis Current Visit: Yes Status: Acute - Summary of Assessment and Plan Summary of Assessment and Plan: Assessment Acute Sepsis- resolved HCAP- unclear organism, possibly bacterial COPD exacerbation JULI on CKD leukocytosis Chronic CKD 3 HTN COPD CAD Plan - s/p bronchoscopy on 08/23 with BAL, copious mucopurulent secretion and mucous plug with friable mucosa in LLL. - c/w empiric cefepime and vancomycin. On day 6 today. Had MRSA in sputum during last admission. Sepsis resolved. MRSA screen positive. RIP and urine ag negative. Gram stain from BAL without bacteria. Acid fast negative. Will f/u final BAL cultures 08/23. sputum cultures NGTD. Prelim Blood cx 08/20 NGTD. business analyst recommendations appreciated. - Renal function stable and now around baseline. Home lasix resumed tomorrow. - Leukocytosis possibly from steroid use. Improving. c/w steroid taper, symbicort and bronchodilators. Patient clinically better. c/w supplemental oxy gen. Will need O2 qualification before discharge and stop home spiriva given ckd per pulm recommendation - Subcutaneous heparin for dvt prophylaxis Internal Medicine: Result - Labs CBC & Chem 7: 08/25/18 05:37 08/25/18 05:37 Labs: Short CBC 08/25/18 Range/Units 05:37 WBC 14.5 H (4.3-11.1) K/mcL Hgb 10.4 L (11.5-15.4) g/dL Hct 31.7 L (35.3-44.9) % Plt Count 185 (140-400) K/mcL Neutrophils # 11.2 H (1.6-8.9) K/mcL BMP 08/25/18 05:37 Sodium 140 Potassium 4.1 Chloride 106 Carbon Dioxide 24 BUN 50 H Creatinine 1.38 H Glucose 98 Calcium 7.8 L Consult Discharge Plan - Plan Instructions: Methicillin Resistant Staphylococcus Aureus (DC) Referrals: Mandi Salazar [Primary Care Provider] - ____ (3) Pneumonia Qualifiers: Pneumonia type: due to unspecified organism Laterality: left Lung location: lower lobe of lung Qualified Code(s): J18.1 - Lobar pneumonia, unspecified organism (5) Sepsis Qualifiers: Sepsis type: sepsis due to unspecified organism Qualified Code(s): A41.9 - Sepsis, unspecified organism
[2018-08-25] MEDS: Vancomycin 500 MG in 0.9 % Sodium Chloride Mini Bag 100 ML IVPB SCH (15:14)
[2018-08-25] MEDS: Acetaminophen 325 MG TABLET PO PRN (21:16)
[2018-08-26] MEDS: Ipratropium/Albuterol Neb 3 ML IH SCH ×2 (04:17→10:15)
[2018-08-26] MEDS: Acetaminophen 325 MG TABLET PO PRN (05:41)
[2018-08-26] MEDS: *HR* Heparin 5,000 UNIT/ML VIAL SQ SCH (05:41)
[2018-08-26 08:27] LABS: Calcium 7.7 mg/dL (8.6-10.3); Potassium 4.2 mEq/L (3.5-5.1)
[2018-08-26] MEDS: hydrALAZINE 25 MG TABLET PO SCH (08:47)
[2018-08-26] MEDS: amLODIPine 5 MG TABLET PO SCH (08:48)
[2018-08-26] MEDS: Cefepime HCl 2,000 MG in Water for inj. (sterile) 20 ML 20 ML IVP SCH (08:51)
[2018-08-26] MEDS: predniSONE 20 MG TABLET PO SCH (08:51)
[2018-08-26] MEDS: Aspirin Enteric Coated 81 MG Tablet PO SCH (08:51)
[2018-08-26] MEDS: Famotidine 20 MG TABLET PO SCH (08:51)
[2018-08-26] MEDS ORDERED: Furosemide 40 MG TABLET PO SCH (09:00)
[2018-08-26] MEDS: Budesonide/Formoterol 160/4.5 1 PUFF INH IH SCH (10:15)
--- NOTE | 2018-08-26 10:15 | Discharge Summary ---
- NOTES TO OUTPATIENT PROVIDER Notes to Outpatient Provider: Patient will need outpatient follow-up with pulmonology. Patient's hydralazine was held for now given blood pressure relatively stable on 2 medications. May need adjustment of her blood pressure medication with PCP follow-up. Orders not resulted at time of discharge: Pending orders 08/23/18 12:00 AFB Culture, Respiratory [TB] Routine AFB Smear [TB] Routine Culture,Respiratory [RM] Routine Fungal Culture [MYC] Routine 08/23/18 12:12 Cytology [PTH] Routine Date of Encounter: 08/26/18 Time of Encounter: 10:15 - Discharge Diagnosis (1) DVT prophylaxis Priority: Secondary Status: Acute (2) CKD (chronic kidney disease) stage 3, GFR 30-59 ml/min Priority: Secondary Status: Chronic (3) Pneumonia Priority: Primary Status: Acute Qualifiers: Pneumonia type: due to unspecified organism Laterality: left Lung location: lower lobe of lung Qualified Code(s): J18.1 - Lobar pneumonia, unspecified organism (4) COPD exacerbation Priority: Secondary Status: Acute (5) Sepsis Priority: Primary Status: Acute Qualifiers: Sepsis type: sepsis due to unspecified organism Qualified Code(s): A41.9 - Sepsis, unspecified organism (6) JULI (acute kidney injury) Priority: Primary Status: Acute (7) Coronary artery disease Priority: Secondary Status: Chronic Qualifiers: Coronary Disease-Associated Artery/Lesion type: [place] artery [place] vs. transplanted heart: [place] heart Associated angina: without angina Qualified Code(s): I25.10 - Atherosclerotic heart disease of [place] coronary artery without angina pectoris (8) HTN (hypertension) Priority: Secondary Status: Chronic Qualifiers: Hypertension type: essential hypertension Qualified Code(s): I10 - Essential (primary) hypertension Hospital course: Ms. Read is a 82 year old female with past medical history of coronary artery disease, COPD, hypertension, CKD came in with complaint of shortness of breath after recently being treated with steroids and doxycycline. Patient was started on treatment for sepsis related to pneumonia vancomycin and cefepime given previous MRSA positive and penicillin allergy. Patient also had COPD exacerbation and was started on steroids and bronchodilators. Patient had persistent left basilar infiltrate. Given persistent signs of pneumonia pulmonology consult was obtained and patient underwent bronchoscopy. Bronchoscopy showed copious mucopurulent thick secretion throughout the tracheobronchial tree, mucous plugging of left lower lobe, friable mucosa in the left lower lobe, BAL sampling. Patient was continued on empiric antibiotic. Cultures did not grow any organisms. Patient was otherwise stable and improved over the course of her hospital course of 7 days. Discussed with pulmonology Dr. Logan who agreed that 7 day antibiotic course was enough. Patient was otherwise stable to be discharged home to finish steroid taper and follow-up with pulmonology as outpatient. Patient was qualified for home continuous oxygen. Discharge discussed with: patient, family, nurse, social work, case management, strategy consultant - Time Spent with Patient Total time spent providing and/or coordinating discharge services: Time spent: Greater than 30 minutes (40) - Discharge Medications Prescriptions: New predniSONE [PredniSONE] See Taper PO DAILY 9 Days #18 tablet Budesonide/Formoterol 160/4.5 [Symbicort 160/4.5] 2 puff IH BIDR 30 Days #1 hfa.aer.ad Continued Nitroglycerin [Nitrostat] 0.4 mg SL AD PRN PRN Reason: Chest Pain Multivitamin/Iron/Folic Acid [Centrum Complete Multivit Tab] 1 tab PO DAILY Albuterol Sulfate [Proair Hfa] 1 puff IH QID #1 inh Tramadol HCl [Ultram] 50 mg PO HS Atorvastatin Calcium [Lipitor] 20 mg PO DAILY Loratadine [Allergy Relief] 10 mg PO DAILY PRN PRN Reason: Allergy Symptoms Carvedilol [Coreg] 25 mg PO BID Aspirin [Adult Aspirin Regimen] 81 mg PO DAILY Cholecalciferol (Vitamin D3) [Vitamin D3] 1,000 unit PO DAILY [place]-3/Dha/Epa/Fish Oil [Fish Oil 1,000 mg Softgel] 1 cap PO DAILY Levothyroxine Sodium [Levoxyl] 75 mcg PO DAILY Oxybutynin Chloride [Ditropan Xl] 5 mg PO DAILY PRN PRN Reason: bladder spasm Furosemide [Lasix] 60 mg PO DAILY amLODIPine [Norvasc] 5 mg PO DAILY 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] 75 mg PO BID Discontinued Tiotropium [place] [Spiriva Respimat] 1 puff IH BID hydrALAZINE [HydrALAZINE] 50 mg PO BID Doxycycline 100 mg PO BID #9 capsule predniSONE [PredniSONE] 40 mg PO DAILY #2 tablet Home Medications: Multivitamin/Iron/Folic Acid [Centrum Complete Multivit Tab] 1 tab PO DAILY 04/07/15 [History] Nitroglycerin [Nitrostat] 0.4 mg SL AD PRN 04/07/15 [History] Albuterol Sulfate [Proair Hfa] 1 puff IH QID #1 inh 05/12/18 [Rx] Aspirin [Adult Aspirin Regimen] 81 mg PO DAILY 07/03/18 [History] Atorvastatin Calcium [Lipitor] 20 mg PO DAILY 07/03/18 [History] Carvedilol [Coreg] 25 mg PO BID 07/03/18 [History] Cholecalciferol (Vitamin D3) [Vitamin D3] 1,000 unit PO DAILY 07/03/18 [History] Loratadine [Allergy Relief] 10 mg PO DAILY PRN 07/03/18 [History] [place]-3/Dha/Epa/Fish Oil [Fish Oil 1,000 mg Softgel] 1 cap PO DAILY 07/03/18 [History] Tramadol HCl [Ultram] 50 mg PO HS 07/03/18 [History] Furosemide [Lasix] 60 mg PO DAILY 08/20/18 [History] Levothyroxine Sodium [Levoxyl] 75 mcg PO DAILY 08/20/18 [History] Oxybutynin Chloride [Ditropan Xl] 5 mg PO DAILY PRN 08/20/18 [History] 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] 75 mg PO BID 08/20/18 [History] amLODIPine [Norvasc] 5 mg PO DAILY 08/20/18 [History] Budesonide/Formoterol 160/4.5 [Symbicort 160/4.5] 2 puff IH BIDR 30 Days #1 hfa.aer.ad 08/26/18 [Rx] predniSONE [PredniSONE] See Taper PO DAILY 9 Days #18 tablet 08/26/18 [Rx] Allergies/Adverse Reactions: Allergy/AdvReac Type Severity Reaction Status Date / Time ibuprofen [From Advil] Allergy See Verified 08/22/18 10:09 Comments Penicillins Allergy See Verified 08/22/18 10:09 Comments IVP dye Allergy Anaphylaxis Uncoded 07/02/18 10:01 Date of admission: 08/21/18 14:57 Primary care physician: Mandi Salaazr Consults: 08/21/18 03:36 Consult to Nurse Navigator [CONS] Routine Comment: 08/22/18 14:03 Consult to Pulmonology [CONS] Routine Consulting Provider: [facility] Reason for Consult: Need for bronchoscopy, Pneumonia Call Completed: Yes Discharging clinician: José Villavicencio - Constitutional Vitals: Temp Pulse Resp BP Pulse Ox 97.9 F 59 16 113/67 100 08/26/18 08:30 08/26/18 08:30 08/26/18 08:30 08/26/18 08:30 08/26/18 08:30 Exam: General: In no acute distress. Respiratory exam: CTAB. no accessory muscle use. Cardiovascular exam: RRR, +S1, +S2. no murmur, gallop, rubs. GI/Abdominal exam: Non-tender, Non-distended, normal bowel sounds, soft, no peritoneal signs. Extremities exam: trace pedal edema, pulses palpable in b/l lower extremities. no calf tenderness Neurological exam: CN II-XII intact, AO X3, no focal deficits. Skin exam: No skin rash - Patient Status Disposition: Home, Self-Care Condition: Good - Discharge Instructions Instructions: Methicillin Resistant Staphylococcus Aureus (DC) Follow Up With: Mandi Salazar [Primary Care Provider] - 09/02/18 4:00 pm Bernice Paul MD [Partnered Physician] - - Diet and Activity Activity: increase activity as tolerated
[2018-08-26 12:11] VITALS: BP 108/66
[2018-08-26] MEDS ORDERED: Aminoglycoside Consult 1 EACH MC ONE (14:53)
--- NOTE | 2018-08-26 17:27 | Electrocardiograph Report ---
[place] [id number] Test Date: 2018-08-26 Pat Name: Desi Read Department: 115 Room: 3A42 Gender: F Budget Record Clerk: : 1935 Requested By: Avinash Resendez Order Number: [id number] Reading MD: Jess Marcus Measurements Intervals [place] Rate: 58 P: 51 NE: 147 QRS: -48 QRSD: 133 T: 96 QT: 452 QTc: 450 Interpretive Statements SINUS BRADYCARDIA MARKED LEFT AXIS DEVIATION LEFT BUNDLE BRANCH BLOCK Electronically Signed On 08-26-2018 17:25:44 EDT by Jess Marcus
== END 2018-08-26 14:54 | disposition home or self-care (01) | DRG 871 ==
LOC: 3ANU 17:57 → EMEROOARM 17:57 → SUATTDRO 21:59 → 3ANU 23:18
PROVIDERS: ADMIT Family Medicine; ATTEND Internal Medicine

== ENCOUNTER 2019-04-16 11:22 | Observation (INO) ==
[2019-04-16] MEDS ORDERED: methylPREDNISolone 125 MG/2 ML VIAL IVP ONE (11:37)
[2019-04-16] MEDS ORDERED: Ipratropium/Albuterol Neb 3 ML IH ONE (11:37)
[2019-04-16 11:59] LABS: Basophils # 0.1 K/mcL (0.0-0.2); Basophils % 0.8 %; Eosinophils # 1.6 K/mcL (0.0-0.6); Eosinophils % 19.9 %; Hematocrit 38.5 % (35.3-44.9); Hemoglobin 12.9 g/dL (11.5-15.4); Immature Granulocytes % 0.3 % (0-4); Mean Corpuscular HGB Conc 33.5 g/dL (31.6-35.5); Mean Corpuscular Hemoglobin 32.1 pg (28.0-33.3); Mean Corpuscular Volume 95.8 fL (83.0-100.0); Mean Platelet Volume 9.6 fL (9.4-12.4); Monocytes # 0.7 K/mcL (0.0-1.3); Monocytes % 8.7 %; Neutrophils # 3.5 K/mcL (1.6-8.9); Platelet Count 168 K/mcL (140-400); Red Blood Count 4.02 M/mcL (3.82-4.97); Red Cell Distribution Width 13.3 % (11.5-14.5); Segmented Neutrophils % 45.3 %; White Blood Count 7.8 K/mcL (4.3-11.1)
[2019-04-16 12:20] LABS: BUN/Creatinine Ratio 28 (6-26); Blood Urea Nitrogen 39 mg/dL (8-23); Calcium 9.6 mg/dL (8.6-10.3); Carbon Dioxide 30 mEq/L (23-29); Chloride 105 mEq/L (98-107); Glucose 96 mg/dL (70-105); Osmolality,Calculated 301 (280-300); Sodium 141 mEq/L (136-145); Troponin I < 0.03 ng/mL (< 0.04); eGFR For African Americans 44 (> 60); eGFR For Non-African Americans 36 (> 60)
[2019-04-16] MEDS ORDERED: Azithromycin 250 MG TABLET PO ONE (12:55)
[2019-04-16] MEDS ORDERED: Acetaminophen 325 MG TABLET PO PRN (13:36)
[2019-04-16] MEDS ORDERED: Naloxone 0.4 MG/ML INJ IVP PRN (13:36)
[2019-04-16] MEDS ORDERED: Ipratropium Neb 0.5 MG NEBULIZER IH PRN (13:41)
[2019-04-16] MEDS: Ipratropium/Albuterol Neb 3 ML IH SCH ×2 (15:50→22:07)
[2019-04-16] MEDS: *HR* Heparin 5,000 UNIT/ML VIAL SQ SCH (17:39)
[2019-04-16] MEDS ORDERED: Melatonin 3 MG TABLET PO ONE (22:15)
[2019-04-16] MEDS: carvediloL 6.25 MG TABLET PO SCH (23:23)
[2019-04-17] MEDS: Ipratropium/Albuterol Neb 3 ML IH SCH ×2 (03:41→10:31)
[2019-04-17 05:17] LABS: Basophils % 0.2 %; Hematocrit 36.1 % (35.3-44.9); Hemoglobin 12.6 g/dL (11.5-15.4); Immature Granulocytes % 0.6 % (0-4); Lymphocytes % 9.8 %; Mean Corpuscular HGB Conc 34.9 g/dL (31.6-35.5); Mean Corpuscular Hemoglobin 32.1 pg (28.0-33.3); Mean Corpuscular Volume 91.9 fL (83.0-100.0); Mean Platelet Volume 10.7 fL (9.4-12.4); Monocytes # 0.4 K/mcL (0.0-1.3); Monocytes % 3.3 %; Nucleated Red Blood Cells 0.4 /100 WBC (0); Platelet Count 136 K/mcL (140-400); Red Blood Count 3.93 M/mcL (3.82-4.97); Red Cell Distribution Width 13.1 % (11.5-14.5); Segmented Neutrophils % 86.1 %; White Blood Count 10.5 K/mcL (4.3-11.1)
[2019-04-17 05:36] LABS: Albumin 3.5 g/dL (3.5-5.7); Albumin/Globulin Ratio 1.3 (1.1-2.2); Bilirubin,Total 0.5 mg/dL (0.3-1.0); Calcium 9.1 mg/dL (8.6-10.3); Globulin 2.6 g/dL (2.4-3.5); Potassium 4.1 mEq/L (3.5-5.1); Total Protein 6.1 g/dL (6.4-8.9)
[2019-04-17] MEDS: *HR* Heparin 5,000 UNIT/ML VIAL SQ SCH (05:43)
[2019-04-17] MEDS: carvediloL 6.25 MG TABLET PO SCH (08:06)
[2019-04-17] MEDS ORDERED: Azithromycin 250 MG TABLET PO SCH (09:00)
[2019-04-17] MEDS ORDERED: MethylPREDNISolone 40 MG/ML VIAL IVP SCH (09:00)
[2019-04-17 13:51] VITALS: BP 118/67
== END 2019-04-17 13:25 | disposition home or self-care (01) ==
LOC: EMEROOARM 11:22 → 2ANU 11:22
PROVIDERS: ADMIT Internal Medicine; ATTEND Internal Medicine